=== PATIENT | female | born 1930 | race Caucasian/White ===

== ENCOUNTER 2018-02-08 11:56 | Inpatient (IN) | payer MEDICARE, BC ==
[2018-02-08 12:28] LABS: CHLORIDE,CL 103 mEq/L (98-106); SODIUM,NA 140 mEq/L (136-145)
[2018-02-08] MEDS ORDERED: Sodium Chloride 0.9% 10 ML Syringe FLUSH PRN (14:56)
[2018-02-08] MEDS ORDERED: Acetaminophen 325 MG Tab PO PRN (14:56)
[2018-02-08] MEDS ORDERED: Temazepam 15 MG Cap PO PRN (14:56)
[2018-02-08] MEDS ORDERED: Magnesium Hydroxide 400 MG/5 ML Susp 30 ML Cup PO PRN (14:56)
[2018-02-08] MEDS ORDERED: Phytonadione 10 MG in Sodium Chloride 0.9% 50 ML IV ONE (15:09)
[2018-02-08] MEDS ORDERED: Calcium Carbonate 500 MG Tab.Chew PO PRN (15:10)
[2018-02-08] MEDS ORDERED: Sodium Chloride 0.9% 250 ML IV SCH (15:15)
[2018-02-08] MEDS: Furosemide 20 MG/2 ML VIAL IVPUSH SCH ×2 (16:02→22:17)
[2018-02-08] MEDS ORDERED: Phytonadione ORAL 2.5mg/2.5ml Soln Simple Syrup U/D PO ONE (16:45)
[2018-02-08] MEDS: Latanoprost 0.005% Ophth Soln 2.5 ML Bottle EYEBOTH SCH (19:51)
[2018-02-08] MEDS: prednisoLONE Acetate 1% Ophth Susp 5 ML Bottle EYELF SCH (19:51)
[2018-02-08] MEDS: Carvedilol 3.125 MG Tab PO SCH (19:53)
[2018-02-08] MEDS: cloNIDine 0.1 MG Tab PO SCH (19:54)
[2018-02-08] MEDS: Insulin Detemir 100 Units/ML 3 ML Pen SUBCUT SCH (19:54)
[2018-02-08] MEDS: Magnesium Chloride 64 MG Tab.ER PO SCH (19:57)
[2018-02-09] MEDS: Furosemide 20 MG/2 ML VIAL IVPUSH SCH ×2 (07:35→19:50)
[2018-02-09] MEDS: Ferrous Sulfate 324 MG Tab.EC PO SCH (07:36)
[2018-02-09] MEDS: cloNIDine 0.1 MG Tab PO SCH ×2 (07:36→19:50)
[2018-02-09] MEDS: Carvedilol 3.125 MG Tab PO SCH ×2 (07:36→19:50)
[2018-02-09] MEDS: Aspirin 81 MG Tab.EC PO SCH (07:36)
[2018-02-09] MEDS: Psyllium Husk Powder Sugar Free 5.85 GM Packet PO SCH (07:38)
[2018-02-09] MEDS: Cholecalciferol (Vitamin D3) 1,000 Unit Tab PO SCH (07:38)
[2018-02-09] MEDS: Insulin Detemir 100 Units/ML 3 ML Pen SUBCUT SCH ×2 (07:39→20:53)
[2018-02-09] MEDS: prednisoLONE Acetate 1% Ophth Susp 5 ML Bottle EYELF SCH ×4 (07:40→19:51)
[2018-02-09] MEDS: BRIMONIDINE EYEBOTH SCH ×2 (08:40→08:41)
--- NOTE | 2018-02-09 09:24 | PN ---
DATE: 02/09/2018 HISTORY OF PRESENT ILLNESS: Tala Weathers came in with short of breath, left ventricular systolic congestive heart failure and anemia which she has had before. Hemoglobin was down to 7.7, admitted to the hospital, given 2 units of blood. Started on IV diuresis, says she feels better today. PHYSICAL EXAMINATION: NECK: Supple. LUNGS: Little crepitus at left base. CARDIAC: Sounds were regular with aortic click. EXTREMITIES: She still has +2 bilateral pretibial edema. D-dimer looks okay, so I doubt DVT. ASSESSMENT: 1. LEFT VENTRICULAR SYSTOLIC CONGESTIVE HEART FAILURE. 2. ANEMIA. 3. VALVE PROSTHESIS. 4. HISTORY OF ATRIAL FIBRILLATION. P: Monitor. LLOYD/DORIE /[id number]
[2018-02-09] MEDS: Magnesium Chloride 64 MG Tab.ER PO SCH ×2 (12:12→19:54)
[2018-02-09] MEDS: atorvaSTATin 10 MG Tab PO SCH (12:12)
[2018-02-09] MEDS: Latanoprost 0.005% Ophth Soln 2.5 ML Bottle EYEBOTH SCH (19:51)
[2018-02-10] MEDS ORDERED: Potassium Chloride 10 MEQ Tab.ER PO STA (08:10)
[2018-02-10] MEDS: Cholecalciferol (Vitamin D3) 1,000 Unit Tab PO SCH (08:18)
[2018-02-10] MEDS: Carvedilol 3.125 MG Tab PO SCH ×2 (08:18→19:26)
[2018-02-10] MEDS: Ferrous Sulfate 324 MG Tab.EC PO SCH (08:18)
[2018-02-10] MEDS: cloNIDine 0.1 MG Tab PO SCH ×2 (08:18→19:25)
[2018-02-10] MEDS: Aspirin 81 MG Tab.EC PO SCH (08:18)
[2018-02-10] MEDS: Furosemide 20 MG/2 ML VIAL IVPUSH SCH ×2 (08:19→19:26)
[2018-02-10] MEDS: Insulin Detemir 100 Units/ML 3 ML Pen SUBCUT SCH ×2 (08:19→20:11)
[2018-02-10] MEDS: Psyllium Husk Powder Sugar Free 5.85 GM Packet PO SCH (08:20)
[2018-02-10] MEDS: BRIMONIDINE EYEBOTH SCH ×6 (08:38→19:26)
--- NOTE | 2018-02-10 11:53 | PN ---
DATE: 02/10/2018 S: Tala Weathers is an 87-year-old white female who came in with anemia of chronic disease, [id number] congestive heart failure. Today says she is feeling better. O: NECK: Supple. CHEST: Little decreased breath sounds, right base. CARDIAC: Sounds were regular. She has still got +1 pretibial edema. ASSESSMENT: 1. LEFT VENTRICULAR SYSTOLIC CONGESTIVE HEART FAILURE. 2. ANEMIA OF CHRONIC DISEASE. P: We are going to start some potassium supplemental, start her back on her Coumadin for aortic valve and atrial fibrillation. LLOYD/DORIE /[id number]
[2018-02-10] MEDS: Warfarin 2.5 MG Tab PO SCH (12:12)
[2018-02-10] MEDS: Magnesium Chloride 64 MG Tab.ER PO SCH ×2 (12:12→20:11)
[2018-02-10] MEDS: atorvaSTATin 10 MG Tab PO SCH (12:14)
[2018-02-10] MEDS: Potassium Chloride 10 MEQ Tab.ER PO SCH (17:04)
[2018-02-10] MEDS: Latanoprost 0.005% Ophth Soln 2.5 ML Bottle EYEBOTH SCH (19:26)
[2018-02-11] MEDS: Psyllium Husk Powder Sugar Free 5.85 GM Packet PO SCH (08:17)
[2018-02-11] MEDS: Insulin Detemir 100 Units/ML 3 ML Pen SUBCUT SCH (08:17)
[2018-02-11] MEDS: Furosemide 20 MG/2 ML VIAL IVPUSH SCH (08:18)
[2018-02-11] MEDS: cloNIDine 0.1 MG Tab PO SCH (08:20)
[2018-02-11] MEDS: Ferrous Sulfate 324 MG Tab.EC PO SCH (08:20)
[2018-02-11 08:21] VITALS: BP 137/52
[2018-02-11] MEDS: Aspirin 81 MG Tab.EC PO SCH (08:21)
[2018-02-11] MEDS: Potassium Chloride 10 MEQ Tab.ER PO SCH (08:21)
[2018-02-11] MEDS: Carvedilol 3.125 MG Tab PO SCH (08:21)
[2018-02-11] MEDS: Cholecalciferol (Vitamin D3) 1,000 Unit Tab PO SCH (08:21)
[2018-02-11] MEDS: BRIMONIDINE EYEBOTH SCH (08:22)
--- NOTE | 2018-02-11 09:06 | DISCH ---
HOSPITAL COURSE: Tala Weathers is an elderly white female who came in with short of breath and left ventricular systolic congestive heart failure with a hemoglobin of 7 and she was transfused 2 units, started on diuresis, responded nicely at time of discharge. Peripheral edema is gone. She said she felt great. PHYSICAL EXAMINATION: NECK: Supple. CHEST: Basically clear. LABORATORY DATA: Lab in the hospital, her hemoglobin is 7.7, she came in, 9.7 prior to discharge. INR was adequate. Creatinine was 1.41, down 1.1. Low calcium from total low proteins. Blood sugars were good. Urine was clear. Pro- BNP was 9626. Echo results are pending. DISPOSITION: The patient now discharged home on her home meds and then we will see her back in the clinic on Thursday for appropriate lab work and the possibility of looking to see whether she is GI bleeding or whether it is just [id number] disease or leftover polymyalgia rheumatica. DISCHARGE DIAGNOSIS: 1. ANEMIA, QUESTION ETIOLOGY, POSSIBLE [id number] DISEASE. 2. LEFT VENTRICULAR SYSTOLIC CONGESTIVE HEART FAILURE. 3. CHRONIC RENAL INSUFFICIENCY. 4. DIABETES MELLITUS. 5. HYPERTENSION. 6. HYPERLIPIDEMIA. 7. AORTIC VALVE PROSTHESIS WITH ATRIAL FIBRILLATION. LLOYD/DORIE /[id number]
[2018-02-11] MEDS: Warfarin 2.5 MG Tab PO SCH (11:32)
[2018-02-11] MEDS: Magnesium Chloride 64 MG Tab.ER PO SCH (11:32)
[2018-02-11] MEDS: atorvaSTATin 10 MG Tab PO SCH (11:32)
== END 2018-02-11 12:25 | disposition home or self-care (01) | DRG 292 ==
LOC: CC.MS 11:56 → CC.FCMC 11:56 → UNDOADMIN 13:44 → CC.MS 13:44
PROVIDERS: ADMIT General Practice; ATTEND General Practice
PROC: 30233N1 Transfusion of Nonautologous Red Blood Cells into Peripheral Vein, Percutaneous Approach (ICD-10-PCS; principal; 2018-02-08)
DX: R06.02 Shortness of breath (principal); I13.0 Hypertensive heart and chronic kidney disease with heart failure and stage 1 through stage 4 chronic kidney disease, or unspecified chronic kidney disease; I50.20 Unspecified systolic (congestive) heart failure; D63.1 Anemia in chronic kidney disease; R60.9 Edema, unspecified; E11.22 Type 2 diabetes mellitus with diabetic chronic kidney disease; I48.91 Unspecified atrial fibrillation; Z88.8 Allergy status to other drugs, medicaments and biological substances; Z79.899 Other long term (current) drug therapy; M19.90 Unspecified osteoarthritis, unspecified site; D64.9 Anemia, unspecified; N18.9 Chronic kidney disease, unspecified; E78.5 Hyperlipidemia, unspecified; Z95.2 Presence of prosthetic heart valve
CPT/HCPCS: 36415; 36430; 71046; 80048; 80053; 80162; 81001; 82962; 83735; 83880; 85025; 85379; 85610; 85651; 86850; 86900; 86901; 86920; 86922; 93306; 97110-GP; 97161-GP; A9270-GY; J1815-GY; J1940; J7030; P9016

== ENCOUNTER 2018-02-12 18:00 | Inpatient (IN) | payer MEDICARE, BC ==
--- NOTE | 2018-02-12 19:18 | EDM.PDOC ---
ED HPI GENERAL MEDICAL PROBLEM - General Chief Complaint: Fever Stated Complaint: fever Time Seen by Provider: 02/12/18 18:15 Source of Information: Reports: Patient, Family History Limitations: Reports: No Limitations - History of Present Illness INITIAL COMMENTS - FREE TEXT/NARRATIVE: Patient presents back to ER with complaints of fatigue, fever and arm discomfort. Was discharged home from the hospital yesterday after being admitted for CHF and anemia. Did get 2 units of blood while here and her hemoglobin improved from 7.7 to 9.7 by discharge. She denies any known bleeding. Daughter states she has been anemic in the past but hasn't had any blood transfusions for over 40 years. Daughter relates that she hasn't been out of bed much today, didn't eat dinner or any snacks today. Only had a few bites to eat this am. Daughter states she was running a temp this afternoon, 100.5. Continues to have significant edema in her legs, short of breath. Denies any urinary concerns. Denies pain. Onset: Gradual Duration: Day(s): Location: Reports: Generalized Associated Symptoms: Reports: Loss of Appetite, Weakness. Denies: Chest Pain, Cough, Fever/Chills, Shortness of Breath - Related Data Allergies Allergy/AdvReac Type Severity Reaction Status Date / Time Sulfa (Sulfonamide Allergy Intermediate Rash Verified 02/12/18 18:38 Antibiotics) gentamicin [Gentamicin] Allergy Mild sore eyes Verified 02/12/18 18:38 hydralazine [Hydralazine] Allergy Mild Cannot Verified 02/12/18 18:38 Remember metoprolol Allergy Mild Fluid Verified 02/12/18 18:38 Retention selenium sulfide Allergy Mild Cannot Verified 02/12/18 18:38 Remember amoxicillin trihydrate Allergy Rash Verified 02/12/18 18:38 [From Augmentin] potassium clavulanate Allergy Rash Verified 02/12/18 18:38 [From Augmentin] rosiglitazone maleate Allergy Abdominal Verified 02/12/18 18:38 [From Avandia] Pain Yeast Allergy Abdominal Verified 02/12/18 18:38 Pain Home Meds: Home Meds Aspirin [Halfprin] 81 mg PO DAILY 01/24/14 [History] Brimonidine [Alphagan P 0.1% Ophth Soln] 1 drop EYEBOTH TID 01/24/14 [History] Cholecalciferol (Vitamin D3) [Vitamin D3] 2,000 unit PO DAILY 01/24/14 [History] Ferrous Sulfate 325 mg PO DAILY 01/24/14 [History] Insulin Detemir [Levemir Flexpen] 3 - 4 units SUBCUT BID 01/24/14 [History] Latanoprost 1 drop EYEBOTH BEDTIME 01/24/14 [History] Magnesium Chloride [Magnesium Dr] 2 tab PO 1200,2000 01/24/14 [History] atorvaSTATin [Lipitor] 10 mg PO 1200 01/24/14 [History] cloNIDine [Catapres] 0.5 tab PO BID 01/24/14 [History] Furosemide [Lasix] 40 mg PO BID 10/29/14 [History] Denosumab [Prolia] 60 mg SUBCUT Q180D 01/05/16 [History] Carvedilol 3.125 mg PO BID 12/26/16 [History] ALPRAZolam [Alprazolam] 0.5 mg PO QID PRN 02/08/18 [History] Cefuroxime Axetil [Cefuroxime] 1 tab PO BID PRN 02/08/18 [History] Methylcellulose [Citrucel] 1 tab PO DAILY 02/08/18 [History] prednisoLONE Acetate [Pred Forte 1% Ophth Susp] 1 drop EYELF ASDIRECTED [History] Calcium Carb & Citrate/Vit D3 [Citracal + D ER] 1 each PO DAILY 02/12/18 [ History] Warfarin [Coumadin] 2.5 mg PO SUMOTUTHSA 02/12/18 [History] Warfarin [Coumadin] 5 mg PO WEFR 02/12/18 [History] Past Medical History HEENT History: Reports: Impaired Vision Cardiovascular History: Reports: Afib, Heart Failure, Heart Murmur, Heart Valve Replacement, High Cholesterol, Hypertension, Pacemaker Musculoskeletal History: Reports: Arthritis Endocrine/Metabolic History: Reports: Diabetes, Type II, Osteoporosis Hematologic History: Reports: Anemia - Past Surgical History Cardiovascular Surgical History: Reports: Pacer, Valve Replacement GI Surgical History: Reports: Appendectomy Social & Family History - Family History Family Medical History: Noncontributory - Tobacco Use Smoking Status *Q: Never Smoker Second Hand Smoke Exposure: No - Caffeine Use Caffeine Use: Reports: Coffee - Alcohol Use Days Per Week of Alcohol Use: 0 - Recreational Drug Use Recreational Drug Use: No ED ROS GENERAL - Review of Systems Review Of Systems: See Below Constitutional: Reports: Fever, Chills, Malaise, Weakness, Fatigue, Decreased Appetite HEENT: Denies: Ear Pain, Sinus Problem, Throat Pain Respiratory: Reports: Shortness of Breath. Denies: Cough Cardiovascular: Reports: Edema. Denies: Chest Pain, Lightheadedness Endocrine: Reports: Fatigue GI/Abdominal: Reports: Decreased Appetite. Denies: Abdominal Pain, Nausea, Vomiting : Reports: No Symptoms Musculoskeletal: Reports: No Symptoms Skin: Reports: Erythema (right arm) Neurological: Reports: Weakness ED EXAM, GENERAL - Physical Exam Exam: See Below Exam Limited By: No Limitations General Appearance: Alert, WD/WN, No Apparent Distress Ears: Normal External Exam, Normal TMs Nose: Normal Inspection, Normal Mucosa, No Blood Throat/Mouth: Normal Inspection, Normal Oropharynx Head: Normocephalic Neck: Normal Inspection, Supple, Non-Tender Respiratory/Chest: No Respiratory Distress, Decreased Breath Sounds Cardiovascular: Regular Rate, Rhythm GI/Abdominal: Normal Bowel Sounds, Soft, Non-Tender Extremities: Pedal Edema (3+ pitting bilaterally) Neurological: Alert, Oriented Skin Exam: Warm, Dry, Erythema (right forearm is very red, warm, tender to the touch) Course - Vital Signs Last Recorded V/S: Last Vital Signs Temp 98.9 F 02/12/18 18:03 Pulse 103 H 02/12/18 18:03 Resp 16 02/12/18 18:03 BP 129/56 L 02/12/18 18:03 Pulse Ox 93 L 02/12/18 18:03 - Orders/Labs/Meds Orders: Active Orders 24 hr Category Date Time Status CULTURE BLOOD [BC] Stat Lab 02/12/18 18:35 Received CULTURE BLOOD [BC] Stat Lab 02/12/18 18:45 Received UA W/MICROSCOPIC [URIN] Urgent Lab 02/12/18 18:22 Ordered Labs: Laboratory Tests 02/12/18 02/12/18 02/12/18 Range/Units 18:19 18:45 18:45 WBC 18.0 H (5.0-10.0) 10^3/uL RBC 3.07 L (4.00-5.50) 10^6/uL Hgb 10.5 L (12.0-16.0) g/dL Hct 32.7 L (37.0-47.0) % MCV 106.5 H (82.0-94.0) fL MCH 34.2 H (27.0-32.0) pg MCHC 32.1 L (33.0-38.0) g/dL RDW Coeff of Amie 21.4 H (11.0-15.0) % Plt Count 103 L (150-400) 10^3/uL Neut % (Auto) 93.1 H (35-85) % Lymph % (Auto) 3.1 L (10-55) % [place] % (Auto) 3.7 (0-16) % Eos % (Auto) 0 (0-5) % Baso % (Auto) 0.1 (0-3) % Neut # (Auto) 16.75 H (1.80-7.00) 10^3/uL Lymph # (Auto) 0.56 L (1.00-4.80) 10^3/uL [place] # (Auto) 0.67 (0.00-0.80) 10^3/uL Eos # (Auto) 0.00 (0.00-0.45) 10^3/uL Baso # (Auto) 0.02 10^3/uL PT 16.8 H (9.7-12.3) SEC INR 1.68 H (0.92-1.18) Sodium 140 (136-145) mEq/L Potassium 4.1 (3.5-5.0) mEq/L Chloride 104 (98-106) mEq/L Carbon Dioxide 24 (21-32) mmol/L BUN 35 H (7-18) mg/dL Creatinine 1.2 H (0.6-1.0) mg/dL Est Cr Clr Drug Dosing 24.45 mL/min Estimated GFR (MDRD) 42 L (>=60) mL/min Glucose 86 (75-99) mg/dL Calcium 8.0 L (8.4-10.1) mg/dL Total Bilirubin 2.9 H (0.0-1.0) mg/dL AST 58 H (15-37) U/L ALT 29 (12-78) U/L Alkaline Phosphatase 71 (46-116) U/L C-Reactive Protein 10.0 H (0.2-0.8) mg/dL NT-Pro-B Natriuret Pep 86010 H (0-1000) pg/mL Total Protein 7.0 (6.4-8.2) g/dL Albumin 3.0 L (3.4-5.0) g/dL - Re-Assessments/Exams Free Text/Narrative Re-Assessment/Exam: 02/12/18 19:29 Labs all reviewed. WBC up significantly from yesterday to 18. CRP 10. ProBNP has doubled from prior admission. Hemoglobin is stable Departure - Departure Time of Disposition: 19:30 Disposition: Admitted As Inpatient 65 Condition: Fair Clinical Impression: Cellulitis of right arm Congestive heart failure Qualifiers: Heart failure type: systolic Heart failure chronicity: acute on chronic Qualified Code(s): I50.23 - Acute on chronic systolic (congestive) heart failure - Discharge Information Forms: ED Department Discharge - Problem List & Annotations (1) Cellulitis of right arm SNOMED Code(s): 220114248 Code(s): L03.113 - CELLULITIS OF RIGHT UPPER LIMB Status: Acute Priority : High Current Visit: Yes (2) Congestive heart failure SNOMED Code(s): 82363679 Code(s): I50.9 - HEART FAILURE, UNSPECIFIED Status: Acute Priority: High Current Visit: Yes Qualifiers: Heart failure type: systolic Heart failure chronicity: acute on chronic Qualified Code(s): I50.23 - Acute on chronic systolic (congestive) heart failure - Problem List Review Problem List Initiated/Reviewed/Updated: Yes - My Orders Last 24 Hours: My Active Orders 02/12/18 18:22 UA W/MICROSCOPIC [URIN] Urgent 02/12/18 18:35 CULTURE BLOOD [BC] Stat 02/12/18 18:45 CULTURE BLOOD [BC] Stat - Assessment/Plan Admission H&P: Please use this note as an admission H&P Last 24 Hours: My Active Orders 02/12/18 18:22 UA W/MICROSCOPIC [URIN] Urgent 02/12/18 18:35 CULTURE BLOOD [BC] Stat 02/12/18 18:45 CULTURE BLOOD [BC] Stat Assessment:: 1. Cellulitis of right arm 2. Acute on chronic CHF Plan: Admit inpatient to DR. Spain. IV antibiotics. Lasix IV. Monitor I & O. Physical therapy.
[2018-02-12] MEDS ORDERED: Sodium Chloride 0.9% 10 ML Syringe FLUSH PRN (19:54)
[2018-02-12] MEDS ORDERED: Ondansetron 4 MG Tab.DIS PO PRN (19:54)
[2018-02-12] MEDS ORDERED: prednisoLONE Acetate 1% Ophth Susp 5 ML Bottle EYELF SCH (19:54)
[2018-02-12] MEDS ORDERED: ALPRAZolam 0.25 MG Tab PO PRN (19:54)
[2018-02-12] MEDS ORDERED: cefTRIAXone 1 GM Vial IVPUSH SCH (20:00)
[2018-02-12] MEDS ORDERED: Pantoprazole 40 MG Vial IVPUSH SCH (20:00)
[2018-02-12] MEDS ORDERED: Latanoprost 0.005% Ophth Soln 2.5 ML Bottle EYEBOTH SCH (20:00)
[2018-02-12] MEDS ORDERED: Insulin Detemir 100 Units/ML 3 ML Pen SUBCUT SCH (20:00)
[2018-02-12] MEDS ORDERED: cloNIDine 0.1 MG Tab PO SCH (20:00)
[2018-02-12] MEDS ORDERED: Carvedilol 3.125 MG Tab PO SCH (20:00)
[2018-02-12] MEDS ORDERED: Magnesium Chloride 64 MG Tab.ER PO SCH (20:00)
[2018-02-12] MEDS ORDERED: BRIMONIDINE EYEBOTH SCH (20:00)
[2018-02-12] MEDS ORDERED: ALPRAZolam 0.5 MG Tab.DIS (ODT) PO PRN (20:15)
[2018-02-12] MEDS ORDERED: Furosemide 40 MG/4 ML VIAL IVPUSH SCH (20:30)
[2018-02-12] MEDS: Acetaminophen 325 MG Tab PO PRN (20:38)
[2018-02-12] MEDS ORDERED: Ibuprofen 200 MG Tab PO ONE (23:09)
[2018-02-13] MEDS ORDERED: Sodium Chloride 0.45% 1,000 ML IV SCH (01:15)
[2018-02-13] MEDS ORDERED: Sodium Chloride 0.45% 1,000 ML ONE (01:17)
--- NOTE | 2018-02-13 01:17 | PCM.SN ---
- Free Text/Narrative Note: 0115- Called to assess palliative care patient. Status has declined. Has been febrile, blood pressure low now yet right lung field is noted to have crackles. She is more lethargic. Daughter aware. Will start low IV fluids, get chest xray, consider more IV Lasix as she has not had good urine output since IV Lasix given earlier. 0145- Chest xray completed. Shows cardiomegaly with venous congestion, pleural effusion right base. EKG wide complex rhythm with frequent PVCs. Blood pressure has dropped, last one 77/41. Oxygen on at 2 liters as sats had dropped to 87%. Contacted hospitalist at [facility] with current status, vitals and treatment. Did question transfer as would need ICU care for pressors and IV albumin as Lasix not working. Does feel could push more IV Lasix. Contacted daughter. Does not want to transfer patient, treatment here but keep comfortable. 0500- Family all present at bedside. Has not had any urine output since second dose of IV Lasix given. Family would like to switch patient to comfort cares only as she is not responding well to treatment. She does open her eyes at times, breathing less labored than at 2. Will use morphine as needed, keep oxygen on. Stop IV fluids and other meds.
[2018-02-13] MEDS ORDERED: Furosemide 40 MG/4 ML VIAL IVPUSH ONE (02:02)
[2018-02-13] MEDS ORDERED: Morphine 2 MG/ML Syringe IVPUSH PRN (05:43)
[2018-02-13] MEDS ORDERED: Calcium Carbonate/Vitamin D3 1250 MG-200 Unit Tab PO SCH (08:00)
[2018-02-13] MEDS ORDERED: Ferrous Sulfate 324 MG Tab.EC PO SCH (08:00)
[2018-02-13] MEDS ORDERED: Cholecalciferol (Vitamin D3) 1,000 Unit Tab PO SCH (08:00)
[2018-02-13] MEDS ORDERED: Aspirin 81 MG Tab.EC PO SCH (08:00)
[2018-02-13] MEDS ORDERED: cefTRIAXone 1 GM Vial IVPUSH SCH (10:45)
[2018-02-13] MEDS ORDERED: atorvaSTATin 10 MG Tab PO SCH (12:00)
[2018-02-13] MEDS ORDERED: Warfarin 2.5 MG Tab PO SCH (12:00)
--- NOTE | 2018-02-13 17:51 | PCM.PN ---
- General Info Date of Service: 02/13/18 Admission Dx/Problem (Free Text): Cellulitis Fever Sepsis Acute on chronic CHF Functional Status: Reports: Pain Controlled. Denies: Tolerating Diet, Ambulating - Review of Systems General: Reports: Fever, Weakness, Fatigue, Malaise HEENT: Reports: No Symptoms Pulmonary: Reports: Shortness of Breath, Cough. Denies: Sputum Cardiovascular: Reports: Edema (3+ pitting edema). Denies: Chest Pain Gastrointestinal: Denies: Abdominal Pain, Nausea, Vomiting Genitourinary: Reports: Other (minimal urine output) Musculoskeletal: Reports: No Symptoms Skin: Reports: Pallor - Patient Data Vitals - Most Recent: Last Vital Signs Temp 97 F 02/13/18 08:00 Pulse 78 02/13/18 08:00 Resp 14 02/13/18 08:00 BP 77/36 L 02/13/18 08:00 Pulse Ox 97 02/13/18 08:00 Weight - Most Recent: 122 lb 9.6 oz I&O - Last 24 Hours: Intake & Output 02/13/18 02/13/18 02/13/18 06:59 14:59 22:59 Output Total 125 Balance -125 Lab Results Last 24 Hours: Laboratory Results - last 24 hr 02/12/18 Range/Units 20:31 POC Glucose 131 H (75-105) mg/dl Med Orders - Current: Current Medications Acetaminophen (Tylenol) 650 mg PO Q4H PRN PRN Reason: Pain (Mild 1-3)/fever Last Admin: 02/12/18 20:38 Dose: 650 mg Alprazolam (Alprazolam Odt) 0.5 mg PO QID PRN PRN Reason: Anxiety Ceftriaxone Sodium (Rocephin) 1 gm IVPUSH Q24H EVELYN Morphine Sulfate (Morphine) 1 - 2 mg IVPUSH Q1H PRN PRN Reason: Pain Sodium Chloride (Saline Flush) 10 ml FLUSH ASDIRECTED PRN PRN Reason: Keep Vein Open Discontinued Medications Alprazolam (Xanax) 0.5 mg PO QID PRN PRN Reason: Anxiety Aspirin (Halfprin) 81 mg PO DAILY EVELYN Atorvastatin Calcium (Lipitor) 10 mg PO DAILY@1200 [facility] Calcium Carbonate (Calcium Carbonate/Vitamin D 1250 Mg-200 Unit) 1 tab PO DAILY EVELYN Carvedilol (Coreg) 3.125 mg PO BID [facility] Last Admin: 02/12/18 20:41 Dose: 3.125 mg Ceftriaxone Sodium (Rocephin) 1 gm IVPUSH Q24H [facility] Last Admin: 02/12/18 20:38 Dose: 1 gm Ceftriaxone Sodium (Rocephin) 1 gm IVPUSH Q24H [facility] Last Admin: 02/13/18 11:41 Dose: Not Given Cholecalciferol (Vitamin D3) 2,000 units PO DAILY [facility] Clonidine HCl (Catapres) 0.05 mg PO BID [facility] Last Admin: 02/12/18 20:41 Dose: 0.05 mg Ferrous Sulfate (Ferrous Sulfate) 324 mg PO DAILY [facility] Furosemide (Lasix) 40 mg IVPUSH DAILY [facility] Last Admin: 02/12/18 20:52 Dose: 40 mg Furosemide (Lasix) 40 mg IVPUSH ONETIME ONE Stop: 02/13/18 02:03 Last Admin: 02/13/18 02:49 Dose: 40 mg Sodium Chloride (Sodium Chloride 0.45%) Confirm Administered Dose 1,000 mls @ as directed .ROUTE .STK-MED ONE Stop: 02/13/18 01:18 Last Admin: 02/13/18 01:33 Dose: Not Given Sodium Chloride (Sodium Chloride 0.45%) 1,000 mls @ 50 mls/hr IV ASDIRECTED [facility] Last Admin: 02/13/18 01:33 Dose: 50 mls/hr Ibuprofen (Motrin) 400 mg PO ONETIME ONE Stop: 02/12/18 23:10 Last Admin: 02/12/18 23:11 Dose: 400 mg Insulin Detemir (Levemir) 3 - 4 unit SUBCUT BID [facility] Last Admin: 02/12/18 20:43 Dose: 3 unit Latanoprost (Xalatan 0.005% Ophth Soln) 0 ml EYEBOTH BEDTIME [facility] Last Admin: 02/12/18 20:43 Dose: 1 drop Magnesium Chloride (Mag-64) 128 mg PO BID@1200,2000 [facility] Last Admin: 02/12/18 20:38 Dose: 128 mg Non-Formulary Medication (Brimonidine [Alphagan P 0.1% Ophth Soln]) 1 drop EYEBOTH TID [facility] Last Admin: 02/13/18 06:20 Dose: Not Given Ondansetron HCl (Zofran Odt) 4 mg PO Q4H PRN PRN Reason: nausea, able to take PO Pantoprazole Sodium (Protonix Iv) 40 mg IVPUSH Q24H [facility] Last Admin: 02/12/18 20:38 Dose: 40 mg Prednisolone Acetate (Pred Forte 1% Ophth Susp) ml EYELF ASDIRECTED [facility] Warfarin Sodium (Coumadin) 2.5 mg PO SuMoTuThSa@1200 [facility] Warfarin Sodium (Coumadin) 5 mg PO WeFr@1200 [facility] - Exam Quality Assessment: Supplemental Oxygen General: Alert, Oriented (person only) HEENT: Mucous Membr. Moist/[place] Neck: Supple Lungs: Decreased Breath Sounds, Crackles Cardiovascular: Tachycardia GI/Abdominal Exam: Normal Bowel Sounds, Soft, Non-Tender Extremities: Pedal Edema (3+ pitting edema) Wound/Incisions: Erythema Improving (right arm erythema is improving, cubing machine tender and warm) Psy/Mental Status: Alert - Problem List & Annotations (1) Cellulitis of right arm SNOMED Code(s): 055065864 Code(s): L03.113 - CELLULITIS OF RIGHT UPPER LIMB Status: Acute Priority : High Current Visit: Yes (2) Congestive heart failure SNOMED Code(s): 21034418 Code(s): I50.9 - HEART FAILURE, UNSPECIFIED Status: Acute Priority: High Current Visit: Yes Qualifiers: Heart failure type: systolic Heart failure chronicity: acute on chronic Qualified Code(s): I50.23 - Acute on chronic systolic (congestive) heart failure (3) Palliative care patient SNOMED Code(s): 746113679 Code(s): Z51.5 - ENCOUNTER FOR PALLIATIVE CARE Status: Acute Priority: High Current Visit: Yes - Problem List Review Problem List Initiated/Reviewed/Updated: Yes - My Orders Last 24 Hours: My Active Orders 02/12/18 19:34 Resuscitation Status Routine 02/12/18 19:54 Patient Status [ADT] Routine Oxygen Therapy [RC] .PRN Vital Signs [RC] PRN Acetaminophen [Tylenol] 650 mg PO Q4H PRN Sodium Chloride 0.9% [Saline Flush] 10 ml FLUSH ASDIRECTED PRN Saline Lock Insert [OM.PC] Routine 02/12/18 20:15 ALPRAZolam [Alprazolam ODT] 0.5 mg PO QID PRN 02/12/18 22:00 Sullivan Catheter Insertion [Insert Urinary Catheter] [OM.PC] Q24H 02/13/18 01:20 Chest 1V Frontal [CR] Routine 02/13/18 01:53 Urinary Catheter Assessment [RC] 02/13/18 05:43 Morphine 1 - 2 mg IVPUSH Q1H PRN 02/13/18 20:00 cefTRIAXone [Rocephin] 1 gm IVPUSH Q24H - Assessment Assessment:: Comfort Care Patient Acute on chronic CHF Cellulitis on right arm UTI Sepsis - Plan Plan:: Patient is more alert again this am, answering questions to family with one syllable answers. She still tires very easily. Denies any concern with her breathing this am, significant change from 3 hours ago. Taking sips of water. Lung sounds wet/crackles noted now in both bases. She still has 3+ pitting edema to lower extremities. We had switched to a code level 3 at 530 this am. Long discussion again held with family about this now that she is alert. Still not showing urinary output, still has low blood pressure. Family would like to proceed with antibiotics but no further labs/meds or blood glucose checks yet at this time. Will continue to follow throughout day and change as needed per family request. Dr. [place] aware. No other antibiotics added yet or IV Lasix but will follow status.
[2018-02-13] MEDS: cefTRIAXone 1 GM Vial IVPUSH SCH (20:09)
[2018-02-13] MEDS: Acetaminophen 325 MG Tab PO PRN (20:12)
[2018-02-14] MEDS ORDERED: ALPRAZolam 0.5 MG Tab.DIS (ODT) PO PRN (11:27)
[2018-02-14] MEDS ORDERED: Phytonadione 1 MG in Sodium Chloride 0.9% 50 ML IV ONE (11:34)
[2018-02-14] MEDS: Furosemide 40 MG/4 ML VIAL IVPUSH SCH ×2 (12:04→19:57)
[2018-02-14] MEDS ORDERED: Sodium Chloride 0.45% 1,000 ML IV SCH (12:30)
--- NOTE | 2018-02-14 13:10 | PCM.PN ---
- General Info Date of Service: 02/14/18 Admission Dx/Problem (Free Text): Cellulitis Fever Sepsis Acute on chronic systolic CHF Functional Status: Reports: Pain Controlled, Tolerating Diet, Ambulating - Review of Systems General: Reports: Weakness, Fatigue. Denies: Fever HEENT: Reports: No Symptoms Pulmonary: Reports: Shortness of Breath. Denies: Cough Cardiovascular: Reports: Edema. Denies: Chest Pain, Lightheadedness Gastrointestinal: Reports: Decreased Appetite. Denies: Abdominal Pain, Nausea, Vomiting Genitourinary: Reports: Other (catheter patent) Musculoskeletal: Reports: Arm Pain Skin: Reports: Other (redness and swelling ) Neurological: Reports: No Symptoms Psychiatric: Reports: No Symptoms - Patient Data Vitals - Most Recent: Last Vital Signs Temp 98.5 F 02/14/18 11:41 Pulse 108 H 02/14/18 11:41 Resp 20 02/14/18 11:41 BP 106/62 02/14/18 11:41 Pulse Ox 99 02/14/18 11:41 Weight - Most Recent: 122 lb 9.6 oz I&O - Last 24 Hours: Intake & Output 02/13/18 02/14/18 02/14/18 22:59 06:59 14:59 Output Total 175 100 Balance -175 -100 Lab Results Last 24 Hours: Laboratory Results - last 24 hr 02/14/18 02/14/18 02/14/18 Range/Units 11:17 11:17 11:18 WBC 20.5 H* (5.0-10.0) 10^3/uL RBC 3.04 L (4.00-5.50) 10^6/uL Hgb 10.5 L (12.0-16.0) g/dL Hct 32.4 L (37.0-47.0) % MCV 106.6 H (82.0-94.0) fL MCH 34.5 H (27.0-32.0) pg MCHC 32.4 L (33.0-38.0) g/dL RDW Coeff of Amie 19.9 H (11.0-15.0) % Plt Count 82 L (150-400) 10^3/uL Add Manual Diff Yes Neutrophils % (Manual) 84 (35-85) % Band Neutrophils % 12 H (0-5) % Lymphocytes % (Manual) 2 L (21-55) % Monocytes % (Manual) 2 (2-12) % Absolute Neutrophils 19.68 H (1.80-7.00) 10^3/uL Lymphocytes # (Manual) 0.41 L (1.00-4.80) 10^3/uL Monocytes # (Manual) 0.41 (0.00-0.80) 10^3/uL PT 39.1 H (9.7-12.3) SEC INR 4.18 H* (0.92-1.18) Sodium 134 L (136-145) mEq/L Potassium 5.0 D (3.5-5.0) mEq/L Chloride 101 (98-106) mEq/L Carbon Dioxide 20 L (21-32) mmol/L BUN 66 H D (7-18) mg/dL Creatinine 2.3 H D (0.6-1.0) mg/dL Est Cr Clr Drug Dosing 12.76 mL/min Estimated GFR (MDRD) 20 L (>=60) mL/min Glucose 267 H D (75-99) mg/dL Calcium 7.2 L (8.4-10.1) mg/dL C-Reactive Protein 24.2 H (0.2-0.8) mg/dL NT-Pro-B Natriuret Pep 11962 H (0-1000) pg/mL Med Orders - Current: Current Medications Acetaminophen (Tylenol) 650 mg PO Q4H PRN PRN Reason: Pain (Mild 1-3)/fever Last Admin: 02/13/18 20:12 Dose: 650 mg Alprazolam (Alprazolam Odt) 0.5 mg PO QID PRN PRN Reason: Anxiety Aspirin (Aspirin) 81 mg PO WITHBREAKFAST [facility] Brimonidine Tartrate (Alphagan 0.2% Ophth Soln) 0 ml EYEBOTH TID [facility] Carvedilol (Coreg) 3.125 mg PO BIDM [facility] Ceftriaxone Sodium (Rocephin) 1 gm IVPUSH Q24H [facility] Last Admin: 02/13/18 20:09 Dose: 1 gm Furosemide (Lasix) 40 mg IVPUSH BID [facility] Last Admin: 02/14/18 12:04 Dose: 40 mg Vancomycin HCl 1 gm/ Sodium (Chloride) 250 mls @ 167 mls/hr IV ONETIME ONE Stop: 02/14/18 13:29 Last Admin: 02/14/18 12:18 Dose: 167 mls/hr Sodium Chloride (Sodium Chloride 0.45%) 1,000 mls @ 75 mls/hr IV ASDIRECTED [facility] Sodium Chloride (Sodium Chloride 0.45%) 1,000 mls @ 250 mls/hr IV ASDIRECTED [facility] Insulin Detemir (Levemir) 3 - 4 unit SUBCUT BID [facility] Latanoprost (Xalatan 0.005% Ophth Soln) 0 ml EYEBOTH BEDTIME [facility] Morphine Sulfate (Morphine) 1 - 2 mg IVPUSH Q1H PRN PRN Reason: Pain Prednisolone Acetate (Pred Forte 1% Ophth Susp) 0 ml EYELF TID [facility] Sodium Chloride (Saline Flush) 10 ml FLUSH ASDIRECTED PRN PRN Reason: Keep Vein Open Vancomycin HCl (Pharmacy To Dose - Vancomycin) 1 dose .XX ASDIRECTED [facility] Discontinued Medications Alprazolam (Xanax) 0.5 mg PO QID PRN PRN Reason: Anxiety Alprazolam (Alprazolam Odt) 0.5 mg PO QID PRN PRN Reason: Anxiety Aspirin (Halfprin) 81 mg PO DAILY [facility] Atorvastatin Calcium (Lipitor) 10 mg PO DAILY@1200 [facility] Calcium Carbonate (Calcium Carbonate/Vitamin D 1250 Mg-200 Unit) 1 tab PO DAILY [facility] Carvedilol (Coreg) 3.125 mg PO BID [facility] Last Admin: 02/12/18 20:41 Dose: 3.125 mg Ceftriaxone Sodium (Rocephin) 1 gm IVPUSH Q24H [facility] Last Admin: 02/12/18 20:38 Dose: 1 gm Ceftriaxone Sodium (Rocephin) 1 gm IVPUSH Q24H [facility] Last Admin: 02/13/18 11:41 Dose: Not Given Cholecalciferol (Vitamin D3) 2,000 units PO DAILY [facility] Clonidine HCl (Catapres) 0.05 mg PO BID [facility] Last Admin: 02/12/18 20:41 Dose: 0.05 mg Ferrous Sulfate (Ferrous Sulfate) 324 mg PO DAILY [facility] Furosemide (Lasix) 40 mg IVPUSH DAILY [facility] Last Admin: 02/12/18 20:52 Dose: 40 mg Furosemide (Lasix) 40 mg IVPUSH ONETIME ONE Stop: 02/13/18 02:03 Last Admin: 02/13/18 02:49 Dose: 40 mg Sodium Chloride (Sodium Chloride 0.45%) Confirm Administered Dose 1,000 mls @ as directed .ROUTE .STK-MED ONE Stop: 02/13/18 01:18 Last Admin: 02/13/18 01:33 Dose: Not Given Sodium Chloride (Sodium Chloride 0.45%) 1,000 mls @ 50 mls/hr IV ASDIRECTED [facility] Last Admin: 02/13/18 01:33 Dose: 50 mls/hr Phytonadione 1 mg/ Sodium (Chloride) 50.1 mls @ 100 mls/hr IV NOW ONE Stop: 02/14/18 12:04 Last Admin: 02/14/18 12:24 Dose: Not Given Vancomycin HCl 1 gm/ Sodium (Chloride) 250 mls @ 167 mls/hr IV Q24H [facility] Ibuprofen (Motrin) 400 mg PO ONETIME ONE Stop: 02/12/18 23:10 Last Admin: 02/12/18 23:11 Dose: 400 mg Insulin Detemir (Levemir) 3 - 4 unit SUBCUT BID [facility] Last Admin: 02/12/18 20:43 Dose: 3 unit Latanoprost (Xalatan 0.005% Ophth Soln) 0 ml EYEBOTH BEDTIME [facility] Last Admin: 02/12/18 20:43 Dose: 1 drop Magnesium Chloride (Mag-64) 128 mg PO BID@1200,2000 [facility] Last Admin: 02/12/18 20:38 Dose: 128 mg Non-Formulary Medication (Brimonidine [Alphagan P 0.1% Ophth Soln]) 1 drop EYEBOTH TID [facility] Last Admin: 02/13/18 06:20 Dose: Not Given Ondansetron HCl (Zofran Odt) 4 mg PO Q4H PRN PRN Reason: nausea, able to take PO Pantoprazole Sodium (Protonix Iv) 40 mg IVPUSH Q24H [facility] Last Admin: 02/12/18 20:38 Dose: 40 mg Phytonadione (Aquamephyton) Confirm Administered Dose 10 mg .ROUTE .STK-MED ONE Stop: 02/14/18 11:46 Last Admin: 02/14/18 12:24 Dose: Not Given Phytonadione (Aquamephyton) 1 mg SUBCUT ONETIME ONE Stop: 02/14/18 12:08 Last Admin: 02/14/18 12:17 Dose: 1 mg Prednisolone Acetate (Pred Forte 1% Ophth Susp) ml EYELF ASDIRECTED [facility] Prednisolone Acetate (Pred Forte 1% Ophth Susp) 0 ml EYELF DAILY [facility] Warfarin Sodium (Coumadin) 2.5 mg PO SuMoTuThSa@1200 [facility] Warfarin Sodium (Coumadin) 5 mg PO WeFr@1200 [facility] - Exam Quality Assessment: Supplemental Oxygen General: Alert, Oriented (person; conversing more towards her norm today) HEENT: Mucous Membr. Moist/[place] Neck: Supple Lungs: Decreased Breath Sounds, Crackles Cardiovascular: Regular Rate, Regular Rhythm GI/Abdominal Exam: Normal Bowel Sounds, Soft, Non-Tender Extremities: Arm Pain (patient continues to have redness to the right arm, fiberglass bonding machine tender but has improved since admission), Increased Warmth Skin: Warm, Dry Neurological: No New Focal Deficit - Problem List & Annotations (1) Cellulitis of right arm SNOMED Code(s): 423273122 Code(s): L03.113 - CELLULITIS OF RIGHT UPPER LIMB Status: Acute Priority : High Current Visit: Yes (2) Congestive heart failure SNOMED Code(s): 96188126 Code(s): I50.9 - HEART FAILURE, UNSPECIFIED Status: Acute Priority: High Current Visit: Yes Qualifiers: Heart failure type: systolic Heart failure chronicity: acute on chronic Qualified Code(s): I50.23 - Acute on chronic systolic (congestive) heart failure (3) Palliative care patient SNOMED Code(s): 051976382 Code(s): Z51.5 - ENCOUNTER FOR PALLIATIVE CARE Status: Acute Priority: High Current Visit: Yes - Problem List Review Problem List Initiated/Reviewed/Updated: Yes - My Orders Last 24 Hours: My Active Orders 02/13/18 20:00 cefTRIAXone [Rocephin] 1 gm IVPUSH Q24H 02/14/18 11:30 Furosemide [Lasix] 40 mg IVPUSH BID Vancomycin Pharmacy to Dose [Pharmacy to Dose - Vancomycin] 1 dose .XX ASDIRECTED 02/14/18 12:00 Vancomycin 1 gm Sodium Chloride 0.9% [Normal Saline] 250 ml IV ONETIME 02/14/18 12:15 Sodium Chloride 0.45% 1,000 ml IV ASDIRECTED 02/14/18 12:30 Carvedilol [Coreg] 3.125 mg PO BIDM Sodium Chloride 0.45% 1,000 ml IV ASDIRECTED 02/14/18 14:00 Brimonidine [Alphagan 0.2% Ophth Soln] See Dose Instructions EYEBOTH TID prednisoLONE Acetate [Pred Forte 1% Ophth Susp] See Dose Instructions EYELF TID 02/14/18 20:00 Insulin Detemir [Levemir] 3 - 4 unit SUBCUT BID Latanoprost [Xalatan 0.005% Ophth Soln] See Dose Instructions EYEBOTH BEDTIME 02/15/18 08:00 Aspirin 81 mg PO WITHBREAKFAST - Assessment Assessment:: Comfort Care Patient Acute on chronic CHF Cellulitis on right arm UTI Sepsis - Plan Plan:: Patient is more alert again this am, answering questions to family with one syllable answers. She still tires very easily. Denies any concern with her breathing this am, significant change from 3 hours ago. Taking sips of water. Lung sounds wet/crackles noted now in both bases. She still has 3+ pitting edema to lower extremities. We had switched to a code level 3 at 530 this am. Long discussion again held with family about this now that she is alert. Still not showing urinary output, still has low blood pressure. Family would like to proceed with antibiotics but no further labs/meds or blood glucose checks yet at this time. Will continue to follow throughout day and change as needed per family request. Dr. [place] aware. No other antibiotics added yet or IV Lasix but will follow status. 02-14-2018 Patient is alert today, ambulated to the bathroom. Eating small amounts, drinking only sips of water. She does continue to be fatigued but is conversing with family, overall status much improved. Family discussion held, would like to switch her back to code 2 and proceed with more treatment options since she has improved. [place] [address], creatinine and BUN up most likely due to dehydration. WBC is increased. Blood cultures showing gram positive cocci, most likely a staph aureus. INR is high at 4.19. We will add some of her oral meds as blood pressure is improved, able to restart her Coreg as well. Give her a fluid bolus but start her IV Lasix BID and watch output closely. Add Vancomycin for the sepsis. Vitamiin K 1 mg given. Family aware of all labs and changes and that status of patient still serious but decline transfer yet at this point as well. Recheck labs in am.
[2018-02-14] MEDS: prednisoLONE Acetate 1% Ophth Susp 5 ML Bottle EYELF SCH (13:48)
[2018-02-14] MEDS: Carvedilol 3.125 MG Tab PO SCH ×2 (13:48→17:45)
[2018-02-14] MEDS: Brimonidine 0.2% Ophth Soln 5 ML Bottle EYEBOTH SCH ×2 (13:53→19:59)
[2018-02-14] MEDS: Sodium Chloride 0.45% 1,000 ML IV SCH (18:33)
[2018-02-14] MEDS: cefTRIAXone 1 GM Vial IVPUSH SCH (19:57)
[2018-02-14] MEDS: Latanoprost 0.005% Ophth Soln 2.5 ML Bottle EYEBOTH SCH (19:58)
[2018-02-14] MEDS: Insulin Detemir 100 Units/ML 3 ML Pen SUBCUT SCH (20:22)
[2018-02-14] MEDS: Acetaminophen 325 MG Tab PO PRN (23:33)
[2018-02-15] MEDS: Furosemide 40 MG/4 ML VIAL IVPUSH SCH ×2 (07:56→19:40)
[2018-02-15] MEDS: Aspirin 81 MG Tab.Chew PO SCH (07:56)
[2018-02-15] MEDS: Sodium Chloride 0.45% 1,000 ML IV SCH ×2 (07:56→21:35)
[2018-02-15] MEDS: Carvedilol 3.125 MG Tab PO SCH ×2 (07:56→17:37)
[2018-02-15] MEDS: Insulin Detemir 100 Units/ML 3 ML Pen SUBCUT SCH ×2 (07:59→20:25)
[2018-02-15] MEDS ORDERED: prednisoLONE Acetate 1% Ophth Susp 5 ML Bottle EYELF SCH (08:00)
[2018-02-15] MEDS: Brimonidine 0.2% Ophth Soln 5 ML Bottle EYEBOTH SCH ×3 (08:00→19:39)
[2018-02-15] MEDS: prednisoLONE Acetate 1% Ophth Susp 5 ML Bottle EYELF SCH (09:11)
--- NOTE | 2018-02-15 09:17 | PN ---
DATE: 02/15/2018 S: Tala Weathers came in with cellulitis of her right upper extremity with left ventricular systolic congestive heart failure which she has had before. O: NECK: Supple. CHEST: Little crepitus, right base. CARDIAC: Sounds were irregularly irregular, trace pretibial edema. ABDOMEN: Soft. EXTREMITIES: Right lower extremity cellulitis extending from wrist up to elbow, erythema, edema, tenderness. LABORATORY DATA: Her white counts are dropping. C-reactive protein is up. Preliminary blood culture showed gram-positive cocci, 40-hour growth, no growth, so was contamination. ASSESSMENT: 1. CELLULITIS, RIGHT UPPER AND LOWER EXTREMITY. 2. LEFT VENTRICULAR SYSTOLIC CONGESTIVE HEART FAILURE. 3. ATRIAL FIBRILLATION. 4. ACUTE AND CHRONIC RENAL INSUFFICIENCY. 5. HYPOCALCEMIA WHICH WE WILL TRY AND CORRECT. MIMI /[id number]
[2018-02-15] MEDS ORDERED: Calcium Gluconate 1 GM in Sodium Chloride 0.9% 100 ML IV ONE (09:44)
[2018-02-15] MEDS ORDERED: ALPRAZolam 0.25 MG Tab PO PRN (15:32)
[2018-02-15] MEDS: cefTRIAXone 1 GM Vial IVPUSH SCH (19:44)
[2018-02-15] MEDS: Latanoprost 0.005% Ophth Soln 2.5 ML Bottle EYEBOTH SCH (19:45)
[2018-02-15 19:53] VITALS: BP 121/53
[2018-02-16] MEDS: Brimonidine 0.2% Ophth Soln 5 ML Bottle EYEBOTH SCH (09:45)
[2018-02-16] MEDS: Carvedilol 3.125 MG Tab PO SCH (09:46)
[2018-02-16] MEDS: Furosemide 40 MG/4 ML VIAL IVPUSH SCH (09:46)
[2018-02-16] MEDS: Aspirin 81 MG Tab.Chew PO SCH (09:46)
[2018-02-16] MEDS: Insulin Detemir 100 Units/ML 3 ML Pen SUBCUT SCH (09:47)
--- NOTE | 2018-02-16 11:49 | PCM.DCSUM1 ---
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 She had been discharged from the hospital on 02/11/2018 for anemia and acute on chronic CHF. Family reported she had been running fevers throughout the day, was more fatigued, and her right arm was uncomfortable. Her edema had also significantly worsened and she was short of breath. Throughout hospital stay, patient's WBC improved from 18 on admission to 12.7 at time of discharge. CRP also improved, from highest at 24.2 to 14.6 at time of discharge. Calcium was 8.0 on admission, but did drop to 6.5 on 02/14/2018. Patient received total of 2 gm calcium gluconate. Calcium 6.7 at time of discharge. Total protein normal. Hemoglobin was low, but stable throughout stay. On day of discharge, hgb was 9.7. On 02/08, from previous admission, hemoglobin was 7.7. She was transfused 2 units PRBCs at that admission. Creatinine was elevated on admission to 2.3. Creatinine had returned to baseline 1.4 on day of discharge. Patient recieved IVF, which will be stopped today. She was initially started on Rocephin for cellulitis, which was switched to Vanco after positive preliminary blood cultures showing gram positive cocci. Final blood culture report shows staph aureus, with sensitivity to Levaquin. On day of discharge, Vanco and Rocephin will be discontinued and Levaquin will be started. Cellulitis to RUE remains erythematous and tender to touch. Patient remains very weak and unable to get out of bed. Has had some low grade fevers, but for the most part patient has been afebrile. Sullivan catheter will remain in place for accurate I & O until patient is able to get up to the bathroom. She has had good urinary output. Will continue 40 mg IV lasix BID and continue to monitor intake and output. She is alert and oriented. PT will continue to work with patient. Encourage transfer to chair daily. Dr. Spain present on rounds and discussed patient's case with patient's daughter. Patient will be discharged to swing bed for continued IV antibiotics and physical therapy. She remains very weak and unable to get out of bed. She has not been able to ambulate since date of admission. She will need SNF placement upon discharge. Patient and family prefer [facility] in [place]. Patient will need to be on at least 10 days of IV antibiotics. Will remain in swing bed until course of IV antibiotics are finished and bed is available at [facility]. - Discharge Data Discharge Date: 02/16/18 Discharge Disposition: DC/Tfer W/I Hosp To Swing 61 Condition: Good - Discharge Diagnosis/Problem(s) (1) Sepsis due to Staphylococcus aureus with acute renal failure SNOMED Code(s): 664283542 ICD Code: A41.01 - SEPSIS DUE TO METHICILLIN SUSCEPTIBLE STAPHYLOCOCCUS AUREUS; R65.20 - SEVERE SEPSIS WITHOUT SEPTIC SHOCK; N17.9 - ACUTE KIDNEY FAILURE, UNSPECIFIED Status: Acute Priority: High (2) Cellulitis of right arm SNOMED Code(s): 922872128 ICD Code: L03.113 - CELLULITIS OF RIGHT UPPER LIMB Status: Acute Priority : High (3) Congestive heart failure SNOMED Code(s): 59594704 ICD Code: I50.9 - HEART FAILURE, UNSPECIFIED Status: Acute Priority: High Qualifiers: Heart failure type: systolic Heart failure chronicity: acute on chronic Qualified Code(s): I50.23 - Acute on chronic systolic (congestive) heart failure (4) Palliative care patient SNOMED Code(s): 102793065 ICD Code: Z51.5 - ENCOUNTER FOR PALLIATIVE CARE Status: Chronic Priority : High (5) Anemia SNOMED Code(s): 911042510 ICD Code: D64.9 - ANEMIA, UNSPECIFIED Status: Chronic Qualifiers: Anemia type: due to chronic kidney disease Chronic kidney disease stage: unspecified stage Qualified Code(s): N18.9 - Chronic kidney disease, unspecified; D63.1 - Anemia in chronic kidney disease; D63.1 - Anemia in chronic kidney disease - Patient Summary/Data Consults: Consultations 02/16/18 11:04 Consult to Physical Therapy [PT Evaluation and Treatment] [CONS] Routine - Patient Instructions Diet: Usual Diet as Tolerated, Diabetic Diet Activity: As Tolerated - Discharge Plan Home Medications: Home Meds Aspirin [Halfprin] 81 mg PO DAILY 01/24/14 [History] Brimonidine [Alphagan P 0.1% Ophth Soln] 1 drop EYEBOTH TID 01/24/14 [History] Cholecalciferol (Vitamin D3) [Vitamin D3] 2,000 unit PO DAILY 01/24/14 [History] Ferrous Sulfate 325 mg PO DAILY 01/24/14 [History] Insulin Detemir [Levemir Flexpen] 3 - 4 units SUBCUT BID 01/24/14 [History] Latanoprost 1 drop EYEBOTH BEDTIME 01/24/14 [History] Magnesium Chloride [Magnesium Dr] 2 tab PO 1200,199901/24/14 [History] atorvaSTATin [Lipitor] 10 mg PO 1200 01/24/14 [History] cloNIDine [Catapres] 0.5 tab PO BID 01/24/14 [History] Furosemide [Lasix] 40 mg PO BID 10/29/14 [History] Denosumab [Prolia] 60 mg SUBCUT Q180D 01/05/16 [History] Carvedilol 3.125 mg PO BID 12/26/16 [History] ALPRAZolam [Alprazolam] 0.5 mg PO QID PRN 02/08/18 [History] Cefuroxime Axetil [Cefuroxime] 1 tab PO BID PRN 02/08/18 [History] Methylcellulose [Citrucel] 1 tab PO DAILY 02/08/18 [History] prednisoLONE Acetate [Pred Forte 1% Ophth Susp] 1 drop EYELF ASDIRECTED [History] Calcium Carb & Citrate/Vit D3 [Citracal + D ER] 1 each PO DAILY 02/12/18 [ History] Warfarin [Coumadin] 2.5 mg PO SUMOTUTHSA 02/12/18 [History] Warfarin [Coumadin] 5 mg PO WEFR 02/12/18 [History] Forms: ED Department Discharge Referrals: Bud Spain MD [Primary Care Provider] - - General Info Date of Service: 02/16/18 Admission Dx/Problem (Free Text: Cellulitis Fever Sepsis Acute on chronic systolic CHF Subjective Update: Patient reports she has continued redness and tenderness to RUE. She remains very weak. Has not been able to get out of bed much. Feels her swelling in her legs has improved. Functional Status: Reports: Pain Controlled, Tolerating Diet, Urinating (Sullivan catheter). Denies: Ambulating - Review of Systems General: Reports: Fever (low grade), Weakness, Fatigue HEENT: Reports: No Symptoms Pulmonary: Denies: Shortness of Breath, Cough, Sputum, Wheezing Cardiovascular: Reports: Dyspnea on Exertion, Edema. Denies: Chest Pain, Lightheadedness Gastrointestinal: Reports: Decreased Appetite. Denies: Abdominal Pain, Diarrhea , Nausea, Vomiting Genitourinary: Reports: Other (Sullivan catheter) Musculoskeletal: Reports: Arm Pain (RUE) Skin: Reports: Other (erythema to RUE) Neurological: Reports: Difficulty Walking, Weakness. Denies: Confusion, Dizziness, Headache, Numbness, Syncope, Tingling Psychiatric: Reports: No Symptoms. Denies: Confusion - Patient Data Vitals - Most Recent: Last Vital Signs Temp 97.9 F 02/15/18 19:52 Pulse 92 02/15/18 19:52 Resp 20 02/15/18 19:52 BP 121/53 L 02/15/18 19:52 Pulse Ox 97 02/15/18 19:52 Weight - Most Recent: 129 lb 1.6 oz I&O - Last 24 hours: Intake & Output 02/15/18 02/16/18 02/16/18 22:59 06:59 14:59 Intake Total 1000 Output Total 900 Balance 100 Lab Results - Last 24 hrs: Laboratory Results - last 24 hr 02/15/18 02/15/18 02/16/18 Range/Units 13:10 20:17 07:15 WBC (5.0-10.0) 10^3/uL RBC (4.00-5.50) 10^6/uL Hgb (12.0-16.0) g/dL Hct (37.0-47.0) % MCV (82.0-94.0) fL MCH (27.0-32.0) pg MCHC (33.0-38.0) g/dL RDW Coeff of Amie (11.0-15.0) % Plt Count (150-400) 10^3/uL Neut % (Auto) (35-85) % Lymph % (Auto) (10-55) % [place] % (Auto) (0-16) % Eos % (Auto) (0-5) % Baso % (Auto) (0-3) % Neut # (Auto) (1.80-7.00) 10^3/uL Lymph # (Auto) (1.00-4.80) 10^3/uL [place] # (Auto) (0.00-0.80) 10^3/uL Eos # (Auto) (0.00-0.45) 10^3/uL Baso # (Auto) 10^3/uL PT (9.7-12.3) SEC INR (0.92-1.18) Sodium (136-145) mEq/L Potassium (3.5-5.0) mEq/L Chloride (98-106) mEq/L Carbon Dioxide (21-32) mmol/L BUN (7-18) mg/dL Creatinine (0.6-1.0) mg/dL Est Cr Clr Drug Dosing mL/min Estimated GFR (MDRD) (>=60) mL/min Glucose (75-99) mg/dL POC Glucose 237 H 97 (75-105) mg/dl Calcium (8.4-10.1) mg/dL C-Reactive Protein (0.2-0.8) mg/dL Vancomycin Trough 8.7 L (10-20) ug/mL 02/16/18 02/16/18 02/16/18 Range/Units 07:25 07:25 07:25 WBC 12.7 H (5.0-10.0) 10^3/uL RBC 2.90 L (4.00-5.50) 10^6/uL Hgb 9.8 L (12.0-16.0) g/dL Hct 30.2 L (37.0-47.0) % MCV 104.1 H (82.0-94.0) fL MCH 33.8 H (27.0-32.0) pg MCHC 32.5 L (33.0-38.0) g/dL RDW Coeff of Amie 18.7 H (11.0-15.0) % Plt Count 72 L (150-400) 10^3/uL Neut % (Auto) 87.4 H (35-85) % Lymph % (Auto) 6.3 L (10-55) % [place] % (Auto) 5.7 (0-16) % Eos % (Auto) 0.6 (0-5) % Baso % (Auto) 0 (0-3) % Neut # (Auto) 11.06 H (1.80-7.00) 10^3/uL Lymph # (Auto) 0.80 L (1.00-4.80) 10^3/uL [place] # (Auto) 0.72 (0.00-0.80) 10^3/uL Eos # (Auto) 0.08 (0.00-0.45) 10^3/uL Baso # (Auto) 0.00 10^3/uL PT 15.4 H (9.7-12.3) SEC INR 1.53 H (0.92-1.18) Sodium 133 L (136-145) mEq/L Potassium 3.8 D (3.5-5.0) mEq/L Chloride 100 (98-106) mEq/L Carbon Dioxide 22 (21-32) mmol/L BUN 55 H (7-18) mg/dL Creatinine 1.4 H (0.6-1.0) mg/dL Est Cr Clr Drug Dosing 20.96 mL/min Estimated GFR (MDRD) 35 L (>=60) mL/min Glucose 102 H (75-99) mg/dL POC Glucose (75-105) mg/dl Calcium 6.7 L* (8.4-10.1) mg/dL C-Reactive Protein 14.6 H (0.2-0.8) mg/dL Vancomycin Trough (10-20) ug/mL ANDREINA Results - Last 24 hrs: Microbiology 02/12/18 18:35 Aerobic Blood Culture - Final Blood Staphylococcus Aureus Anaerobic Blood Culture - Final 02/12/18 18:45 Aerobic Blood Culture - Preliminary Blood Gram Positive Cocci Anaerobic Blood Culture - Final Med Orders - Current: Current Medications Acetaminophen (Tylenol) 650 mg PO Q4H PRN PRN Reason: Pain (Mild 1-3)/fever Last Admin: 02/14/18 23:33 Dose: 650 mg Alprazolam (Xanax) 0.5 mg PO QID PRN PRN Reason: ANXIETY Last Admin: 02/15/18 15:39 Dose: 0.5 mg Aspirin (Aspirin) 81 mg PO WITHBREAKFAST EVELYN Last Admin: 02/16/18 09:46 Dose: Not Given Brimonidine Tartrate (Alphagan 0.2% Ophth Soln) 0 ml EYEBOTH TID [facility] Last Admin: 02/16/18 09:45 Dose: Not Given Carvedilol (Coreg) 3.125 mg PO BIDM [facility] Last Admin: 02/16/18 09:46 Dose: Not Given Furosemide (Lasix) 40 mg IVPUSH BID [facility] Last Admin: 02/16/18 09:46 Dose: Not Given Levofloxacin/Dextrose 250 mg/ (Premix) 50 mls @ 50 mls/hr IV Q24H [facility] Insulin Detemir (Levemir) 3 - 4 unit SUBCUT BID [facility] Last Admin: 02/16/18 09:47 Dose: Not Given Latanoprost (Xalatan 0.005% Ophth Soln) 0 ml EYEBOTH BEDTIME [facility] Last Admin: 02/15/18 19:45 Dose: 1 drop Morphine Sulfate (Morphine) 1 - 2 mg IVPUSH Q1H PRN PRN Reason: Pain Sodium Chloride (Saline Flush) 10 ml FLUSH ASDIRECTED PRN PRN Reason: Keep Vein Open Warfarin Sodium (Coumadin) 5 mg PO ONETIME ONE Stop: 02/16/18 12:01 Discontinued Medications Alprazolam (Xanax) 0.5 mg PO QID PRN PRN Reason: Anxiety Alprazolam (Alprazolam Odt) 0.5 mg PO QID PRN PRN Reason: Anxiety Alprazolam (Alprazolam Odt) 0.5 mg PO QID PRN PRN Reason: Anxiety Aspirin (Halfprin) 81 mg PO DAILY [facility] Atorvastatin Calcium (Lipitor) 10 mg PO DAILY@1200 [facility] Calcium Carbonate (Calcium Carbonate/Vitamin D 1250 Mg-200 Unit) 1 tab PO DAILY [facility] Carvedilol (Coreg) 3.125 mg PO BID [facility] Last Admin: 02/12/18 20:41 Dose: 3.125 mg Ceftriaxone Sodium (Rocephin) 1 gm IVPUSH Q24H [facility] Last Admin: 02/12/18 20:38 Dose: 1 gm Ceftriaxone Sodium (Rocephin) 1 gm IVPUSH Q24H [facility] Last Admin: 02/13/18 11:41 Dose: Not Given Ceftriaxone Sodium (Rocephin) 1 gm IVPUSH Q24H [facility] Last Admin: 02/15/18 19:44 Dose: 1 gm Cholecalciferol (Vitamin D3) 2,000 units PO DAILY [facility] Clonidine HCl (Catapres) 0.05 mg PO BID [facility] Last Admin: 02/12/18 20:41 Dose: 0.05 mg Ferrous Sulfate (Ferrous Sulfate) 324 mg PO DAILY [facility] Furosemide (Lasix) 40 mg IVPUSH DAILY [facility] Last Admin: 02/12/18 20:52 Dose: 40 mg Furosemide (Lasix) 40 mg IVPUSH ONETIME ONE Stop: 02/13/18 02:03 Last Admin: 02/13/18 02:49 Dose: 40 mg Sodium Chloride (Sodium Chloride 0.45%) Confirm Administered Dose 1,000 mls @ as directed .ROUTE .STK-MED ONE Stop: 02/13/18 01:18 Last Admin: 02/13/18 01:33 Dose: Not Given Sodium Chloride (Sodium Chloride 0.45%) 1,000 mls @ 50 mls/hr IV ASDIRECTED [facility] Last Admin: 02/13/18 01:33 Dose: 50 mls/hr Phytonadione 1 mg/ Sodium (Chloride) 50.1 mls @ 100 mls/hr IV NOW ONE Stop: 02/14/18 12:04 Last Admin: 02/14/18 12:24 Dose: Not Given Vancomycin HCl 1 gm/ Sodium (Chloride) 250 mls @ 167 mls/hr IV Q24H [facility] Vancomycin HCl 1 gm/ Sodium (Chloride) 250 mls @ 167 mls/hr IV ONETIME ONE Stop: 02/14/18 13:29 Last Admin: 02/14/18 12:18 Dose: 167 mls/hr Sodium Chloride (Sodium Chloride 0.45%) 1,000 mls @ 75 mls/hr IV ASDIRECTED [facility] Last Admin: 02/15/18 21:35 Dose: 75 mls/hr Sodium Chloride (Sodium Chloride 0.45%) 1,000 mls @ 250 mls/hr IV ASDIRECTED [facility] Last Admin: 02/14/18 13:51 Dose: 250 mls/hr Calcium Gluconate 1 gm/ Sodium (Chloride) 110 mls @ 100 mls/hr IV ONETIME ONE Stop: 02/15/18 10:49 Last Admin: 02/15/18 09:54 Dose: 100 mls/hr Vancomycin HCl 1 gm/ Sodium (Chloride) 250 mls @ 167 mls/hr IV Q24H [facility] Last Admin: 02/15/18 15:02 Dose: Not Given Ibuprofen (Motrin) 400 mg PO ONETIME ONE Stop: 02/12/18 23:10 Last Admin: 02/12/18 23:11 Dose: 400 mg Insulin Detemir (Levemir) 3 - 4 unit SUBCUT BID [facility] Last Admin: 02/12/18 20:43 Dose: 3 unit Latanoprost (Xalatan 0.005% Ophth Soln) 0 ml EYEBOTH BEDTIME [facility] Last Admin: 02/12/18 20:43 Dose: 1 drop Magnesium Chloride (Mag-64) 128 mg PO BID@1200,2000 [facility] Last Admin: 02/12/18 20:38 Dose: 128 mg Non-Formulary Medication (Brimonidine [Alphagan P 0.1% Ophth Soln]) 1 drop EYEBOTH TID [facility] Last Admin: 02/13/18 06:20 Dose: Not Given Ondansetron HCl (Zofran Odt) 4 mg PO Q4H PRN PRN Reason: nausea, able to take PO Pantoprazole Sodium (Protonix Iv) 40 mg IVPUSH Q24H [facility] Last Admin: 02/12/18 20:38 Dose: 40 mg Phytonadione (Aquamephyton) Confirm Administered Dose 10 mg .ROUTE .STK-MED ONE Stop: 02/14/18 11:46 Last Admin: 02/14/18 12:24 Dose: Not Given Phytonadione (Aquamephyton) 1 mg SUBCUT ONETIME ONE Stop: 02/14/18 12:08 Last Admin: 02/14/18 12:17 Dose: 1 mg Prednisolone Acetate (Pred Forte 1% Ophth Susp) ml EYELF ASDIRECTED [facility] Prednisolone Acetate (Pred Forte 1% Ophth Susp) 0 ml EYELF DAILY [facility] Prednisolone Acetate (Pred Forte 1% Ophth Susp) 0 ml EYELF TID [facility] Last Admin: 02/15/18 09:11 Dose: Not Given Vancomycin HCl (Pharmacy To Dose - Vancomycin) 1 dose .XX ASDIRECTED [facility] Warfarin Sodium (Coumadin) 2.5 mg PO SuMoTuThSa@1200 [facility] Warfarin Sodium (Coumadin) 5 mg PO WeFr@1200 [facility] - Exam Quality Assessment: Reports: Urine Catheter, DVT Prophylaxis General: Reports: Alert, Oriented, No Acute Distress Neck: Reports: Supple Lungs: Reports: Clear to Auscultation, Normal Respiratory Effort Cardiovascular: Reports: Irregular Rhythm, Other (click) GI/Abdominal Exam: Normal Bowel Sounds, Soft, Non-Tender, No Organomegaly, No Distention, No Abnormal Bruit, No Mass, Pelvis Stable Back Exam: Reports: Normal Inspection, Full Range of Motion Extremities: Normal Range of Motion, Normal Capillary Refill, Pedal Edema, Arm Pain (RUE), Increased Warmth (RUE), Redness (RUE). No: Slow Capillary Refill Skin: Reports: Warm, Dry, Intact Neurological: Reports: No New Focal Deficit Psy/Mental Status: Reports: Alert, Normal Affect, Normal Mood
[2018-02-16] MEDS ORDERED: Warfarin 5 MG Tab PO ONE (12:00)
[2018-02-16] MEDS ORDERED: Levofloxacin/Dextrose 5%-Water 250 MG in Premix Bag 1 BAG IV SCH (12:00)
[2018-02-17] MEDS ORDERED: Warfarin 5 MG Tab PO SCH (12:00)
== END 2018-02-16 11:38 | disposition swing bed (61) | DRG 871 ==
LOC: CC.ED 18:00 → UNDOADMIN 19:33 → CC.MS 19:33
PROVIDERS: ADMIT Physician Assistant Medical; ATTEND General Practice
DX: A41.01 Sepsis due to Methicillin susceptible Staphylococcus aureus (principal); I50.23 Acute on chronic systolic (congestive) heart failure; L03.113 Cellulitis of right upper limb; I11.0 Hypertensive heart disease with heart failure; E78.00 Pure hypercholesterolemia, unspecified; E11.9 Type 2 diabetes mellitus without complications; R50.9 Fever, unspecified; R53.83 Other fatigue; R60.0 Localized edema; R06.02 Shortness of breath; R53.1 Weakness; N39.0 Urinary tract infection, site not specified; I13.0 Hypertensive heart and chronic kidney disease with heart failure and stage 1 through stage 4 chronic kidney disease, or unspecified chronic kidney disease; N17.9 Acute kidney failure, unspecified; R65.20 Severe sepsis without septic shock; E11.22 Type 2 diabetes mellitus with diabetic chronic kidney disease; N18.9 Chronic kidney disease, unspecified; D63.1 Anemia in chronic kidney disease; E78.5 Hyperlipidemia, unspecified; E83.51 Hypocalcemia; I48.91 Unspecified atrial fibrillation; M19.90 Unspecified osteoarthritis, unspecified site; H54.7 Unspecified visual loss; M81.0 Age-related osteoporosis without current pathological fracture; Z95.2 Presence of prosthetic heart valve; Z95.0 Presence of cardiac pacemaker; Z79.01 Long term (current) use of anticoagulants; Z79.82 Long term (current) use of aspirin; Z79.4 Long term (current) use of insulin; Z79.899 Other long term (current) drug therapy; Z51.5 Encounter for palliative care
CPT/HCPCS: 36415; 51702; 71045; 80048; 80053; 80202; 81001; 82962; 83880; 85025; 85610; 86140; 87040; 87077; 87186; 93005; 99284; A9270-GY; C9113; J0610; J0696; J1815-GY; J1940; J3370; J3430; J7030; J7050

== ENCOUNTER 2018-02-16 11:38 | Inpatient (IN) | payer MEDICARE, BC ==
[2018-02-16] MEDS ORDERED: ALPRAZolam 0.25 MG Tab PO PRN (13:04)
[2018-02-16] MEDS ORDERED: Sodium Chloride 0.9% 10 ML Syringe FLUSH PRN ×2 (13:04)
[2018-02-16] MEDS ORDERED: Morphine 2 MG/ML Syringe IVPUSH PRN (13:04)
[2018-02-16] MEDS ORDERED: Calcium Gluconate 1 GM in Sodium Chloride 0.9% 100 ML IV ONE (14:30)
[2018-02-16] MEDS ORDERED: Warfarin 5 MG Tab PO ONE (14:45)
[2018-02-16] MEDS: Brimonidine 0.2% Ophth Soln 5 ML Bottle EYEBOTH SCH ×2 (15:17→19:35)
[2018-02-16] MEDS: Furosemide 40 MG/4 ML VIAL IVPUSH SCH (16:06)
[2018-02-16] MEDS: Carvedilol 3.125 MG Tab PO SCH (17:41)
[2018-02-16] MEDS: Latanoprost 0.005% Ophth Soln 2.5 ML Bottle EYEBOTH SCH (19:34)
[2018-02-16] MEDS: Acetaminophen 325 MG Tab PO PRN (19:38)
[2018-02-16] MEDS: Insulin Detemir 100 Units/ML 3 ML Pen SUBCUT SCH (21:01)
[2018-02-17] MEDS: Aspirin 81 MG Tab.Chew PO SCH (08:02)
[2018-02-17] MEDS: Carvedilol 3.125 MG Tab PO SCH ×2 (08:02→16:43)
[2018-02-17] MEDS: Furosemide 40 MG/4 ML VIAL IVPUSH SCH ×2 (08:02→16:43)
[2018-02-17] MEDS: Brimonidine 0.2% Ophth Soln 5 ML Bottle EYEBOTH SCH ×3 (08:04→20:44)
[2018-02-17] MEDS: Insulin Detemir 100 Units/ML 3 ML Pen SUBCUT SCH ×2 (08:05→20:39)
[2018-02-17] MEDS: Calcium Carbonate/Vitamin D3 1250 MG-200 Unit Tab PO SCH (08:12)
[2018-02-17] MEDS ORDERED: Magnesium Hydroxide 400 MG/5 ML Susp 30 ML Cup PO PRN (08:22)
--- NOTE | 2018-02-17 08:31 | PCM.PN ---
- General Info Date of Service: 02/17/18 Admission Dx/Problem (Free Text): Cellulitis RUE Acute on Chronic CHF Acute on Chronic renal insufficiency Subjective Update: Tala remains very weak and fatigued. She reports she is feeling ok. PT did attempt to get her out of bed yesterday, but had difficulty. She struggled to sit at EOB. Functional Status: Reports: Pain Controlled, Tolerating Diet, Urinating (Sullivan catheter). Denies: Ambulating - Review of Systems General: Reports: Weakness, Fatigue. Denies: Fever Pulmonary: Reports: Wheezing. Denies: Shortness of Breath, Cough, Sputum Cardiovascular: Reports: Dyspnea on Exertion, Edema. Denies: Chest Pain, Palpitations, Lightheadedness Gastrointestinal: Reports: Constipation (LBM 325), Decreased Appetite. Denies : Abdominal Pain, Diarrhea, Nausea, Vomiting Genitourinary: Reports: No Symptoms, Other (Sullivan catheter) Musculoskeletal: Reports: Arm Pain Skin: Reports: Other (redness to RUE) Neurological: Reports: Difficulty Walking, Weakness. Denies: Confusion, Dizziness, Numbness, Syncope, Tingling Psychiatric: Reports: No Symptoms - Patient Data Vitals - Most Recent: Last Vital Signs Temp 97.7 F 02/17/18 08:00 Pulse 95 02/17/18 08:00 Resp 20 02/17/18 08:00 BP 124/55 L 02/17/18 08:00 Pulse Ox 99 02/17/18 08:00 Weight - Most Recent: 129 lb I&O - Last 24 Hours: Intake & Output 02/16/18 02/17/18 02/17/18 22:59 06:59 14:59 Output Total 1350 Balance -1350 Lab Results Last 24 Hours: Laboratory Results - last 24 hr 02/16/18 02/17/18 02/17/18 Range/Units 20:49 07:00 07:00 WBC 10.2 H (5.0-10.0) 10^3/uL RBC 2.89 L (4.00-5.50) 10^6/uL Hgb 9.7 L (12.0-16.0) g/dL Hct 30.3 L (37.0-47.0) % MCV 104.8 H (82.0-94.0) fL MCH 33.6 H (27.0-32.0) pg MCHC 32.0 L (33.0-38.0) g/dL RDW Coeff of Amie 18.7 H (11.0-15.0) % Plt Count 83 L (150-400) 10^3/uL Neut % (Auto) 82.9 (35-85) % Lymph % (Auto) 7.6 L (10-55) % [place] % (Auto) 8.3 (0-16) % Eos % (Auto) 1.1 (0-5) % Baso % (Auto) 0.1 (0-3) % Neut # (Auto) 8.49 H (1.80-7.00) 10^3/uL Lymph # (Auto) 0.78 L (1.00-4.80) 10^3/uL [place] # (Auto) 0.85 H (0.00-0.80) 10^3/uL Eos # (Auto) 0.11 (0.00-0.45) 10^3/uL Baso # (Auto) 0.01 10^3/uL PT 13.1 H (9.7-12.3) SEC INR 1.28 H (0.92-1.18) Sodium (136-145) mEq/L Potassium (3.5-5.0) mEq/L Chloride (98-106) mEq/L Carbon Dioxide (21-32) mmol/L BUN (7-18) mg/dL Creatinine (0.6-1.0) mg/dL Est Cr Clr Drug Dosing mL/min Estimated GFR (MDRD) (>=60) mL/min Glucose (75-99) mg/dL POC Glucose 185 H (75-105) mg/dl Calcium (8.4-10.1) mg/dL C-Reactive Protein (0.2-0.8) mg/dL 02/17/18 02/17/18 Range/Units 07:00 07:27 WBC (5.0-10.0) 10^3/uL RBC (4.00-5.50) 10^6/uL Hgb (12.0-16.0) g/dL Hct (37.0-47.0) % MCV (82.0-94.0) fL MCH (27.0-32.0) pg MCHC (33.0-38.0) g/dL RDW Coeff of Amie (11.0-15.0) % Plt Count (150-400) 10^3/uL Neut % (Auto) (35-85) % Lymph % (Auto) (10-55) % [place] % (Auto) (0-16) % Eos % (Auto) (0-5) % Baso % (Auto) (0-3) % Neut # (Auto) (1.80-7.00) 10^3/uL Lymph # (Auto) (1.00-4.80) 10^3/uL [place] # (Auto) (0.00-0.80) 10^3/uL Eos # (Auto) (0.00-0.45) 10^3/uL Baso # (Auto) 10^3/uL PT (9.7-12.3) SEC INR (0.92-1.18) Sodium 136 (136-145) mEq/L Potassium 3.5 (3.5-5.0) mEq/L Chloride 103 (98-106) mEq/L Carbon Dioxide 24 (21-32) mmol/L BUN 50 H (7-18) mg/dL Creatinine 1.1 H (0.6-1.0) mg/dL Est Cr Clr Drug Dosing 26.68 mL/min Estimated GFR (MDRD) 47 L (>=60) mL/min Glucose 125 H (75-99) mg/dL POC Glucose 126 H (75-105) mg/dl Calcium 7.2 L (8.4-10.1) mg/dL C-Reactive Protein 11.6 H (0.2-0.8) mg/dL Med Orders - Current: Current Medications Acetaminophen (Tylenol) 650 mg PO Q4H PRN PRN Reason: Pain (Mild 1-3)/fever Last Admin: 02/16/18 19:38 Dose: 650 mg Alprazolam (Xanax) 0.5 mg PO QID PRN PRN Reason: ANXIETY Aspirin (Aspirin) 81 mg PO WITHBREAKFAST ON LICENSE OF [facility] Last Admin: 02/17/18 08:02 Dose: 81 mg Brimonidine Tartrate (Alphagan 0.2% Ophth Soln) 0 ml EYEBOTH TID ON LICENSE OF [facility] Last Admin: 02/17/18 08:04 Dose: 1 drop Calcium Carbonate (Calcium Carbonate/Vitamin D 1250 Mg-200 Unit) 1 tab PO DAILY ON LICENSE OF [facility] Last Admin: 02/17/18 08:12 Dose: 1 tab Carvedilol (Coreg) 3.125 mg PO BIDM ON LICENSE OF [facility] Last Admin: 02/17/18 08:02 Dose: 3.125 mg Furosemide (Lasix) 40 mg IVPUSH BID@0800,1600 ON LICENSE OF [facility] Last Admin: 02/17/18 08:02 Dose: 40 mg Levofloxacin/Dextrose 250 mg/ (Premix) 50 mls @ 50 mls/hr IV Q24H ON LICENSE OF [facility] Insulin Detemir (Levemir) 3 - 4 unit SUBCUT BID ON LICENSE OF [facility] Last Admin: 02/17/18 08:05 Dose: 4 units Latanoprost (Xalatan 0.005% Ophth Soln) 0 ml EYEBOTH BEDTIME ON LICENSE OF [facility] Last Admin: 02/16/18 19:34 Dose: 1 drop Magnesium Hydroxide (Milk Of Magnesia) 30 ml PO BID PRN PRN Reason: Constipation Morphine Sulfate (Morphine) 1 - 2 mg IVPUSH Q1H PRN PRN Reason: Pain Sodium Chloride (Saline Flush) 10 ml FLUSH ASDIRECTED PRN PRN Reason: Keep Vein Open Spironolactone (Aldactone) 12.5 mg PO DAILY ON LICENSE OF [facility] Warfarin Sodium (Coumadin) 5 mg PO ONETIME ONE Stop: 02/17/18 12:01 Discontinued Medications Calcium Gluconate 1 gm/ Sodium (Chloride) 110 mls @ 55 mls/hr IV ONETIME ONE Stop: 02/16/18 16:29 Last Admin: 02/16/18 15:10 Dose: 55 mls/hr Sodium Chloride (Saline Flush) 10 ml FLUSH ASDIRECTED PRN PRN Reason: Keep Vein Open Warfarin Sodium (Coumadin) 5 mg PO ONETIME ONE Stop: 02/16/18 14:46 Last Admin: 02/16/18 14:51 Dose: Not Given Warfarin Sodium (Coumadin) 5 mg PO ONETIME ONE Stop: 02/18/18 12:01 - Exam Quality Assessment: Supplemental Oxygen, Urine Catheter, DVT Prophylaxis General: Alert, Oriented, No Acute Distress Neck: Supple Lungs: Clear to Auscultation, Normal Respiratory Effort Cardiovascular: Irregular Rhythm, Other (click) GI/Abdominal Exam: Normal Bowel Sounds, Soft, Non-Tender, No Organomegaly, No Distention, No Abnormal Bruit, No Mass, Pelvis Stable Back Exam: Normal Inspection, Full Range of Motion Extremities: Normal Range of Motion, Normal Capillary Refill, Pedal Edema (2+ pitting to BLE), Arm Pain (RUE), Increased Warmth (RUE), Redness (RUE) Peripheral Pulses: 1+: Radial (R) Skin: Warm, Dry, Intact, Other (redness to RUE) Neurological: No New Focal Deficit Psy/Mental Status: Alert, Normal Affect, Normal Mood - Problem List & Annotations (1) Cellulitis of right arm SNOMED Code(s): 244546630 Code(s): L03.113 - CELLULITIS OF RIGHT UPPER LIMB Status: Acute Priority : High Current Visit: No (2) Congestive heart failure SNOMED Code(s): 33529661 Code(s): I50.9 - HEART FAILURE, UNSPECIFIED Status: Acute Priority: High Current Visit: No Qualifiers: Heart failure type: systolic Heart failure chronicity: acute on chronic Qualified Code(s): I50.23 - Acute on chronic systolic (congestive) heart failure (3) Sepsis due to Staphylococcus aureus with acute renal failure SNOMED Code(s): 657924657 Code(s): A41.01 - SEPSIS DUE TO METHICILLIN SUSCEPTIBLE STAPHYLOCOCCUS AUREUS ; R65.20 - SEVERE SEPSIS WITHOUT SEPTIC SHOCK; N17.9 - ACUTE KIDNEY FAILURE, UNSPECIFIED Status: Acute Priority: High Current Visit: No (4) Anemia SNOMED Code(s): 594231623 Code(s): D64.9 - ANEMIA, UNSPECIFIED Status: Chronic Current Visit: No Qualifiers: Anemia type: due to chronic kidney disease Chronic kidney disease stage: unspecified stage Qualified Code(s): N18.9 - Chronic kidney disease, unspecified; D63.1 - Anemia in chronic kidney disease; D63.1 - Anemia in chronic kidney disease (5) Palliative care patient SNOMED Code(s): 526009657 Code(s): Z51.5 - ENCOUNTER FOR PALLIATIVE CARE Status: Chronic Priority: High Current Visit: No - Problem List Review Problem List Initiated/Reviewed/Updated: Yes - My Orders Last 24 Hours: My Active Orders 02/16/18 13:04 Patient Status [ADT] Routine Sullivan Catheter Insertion [Insert Urinary Catheter] [OM.PC] Q24H Oxygen Therapy [RC] PRN POC Glucose [Blood Glucose Check, Bedside] [RC] BIDMEALS Ready for Discharge [RC] BIDMEALS Urinary Catheter Assessment [RC] 799,1999 Urinary Catheter Assessment [RC] ASDIRECTED Consult to Physical Therapy [PT Evaluation and Treatment] [CONS] Routine ALPRAZolam [Xanax] 0.5 mg PO QID PRN Acetaminophen [Tylenol] 650 mg PO Q4H PRN Morphine 1 - 2 mg IVPUSH Q1H PRN Sodium Chloride 0.9% [Saline Flush] 10 ml FLUSH ASDIRECTED PRN Saline Lock Insert [OM.PC] Routine 02/16/18 13:50 Code Status [Resuscitation Status] Routine 02/16/18 14:00 Brimonidine [Alphagan 0.2% Ophth Soln] See Dose Instructions EYEBOTH TID 02/16/18 16:00 Furosemide [Lasix] 40 mg IVPUSH BID@0800,1600 02/16/18 17:30 Carvedilol [Coreg] 3.125 mg PO BIDM 02/16/18 20:00 Vital Signs [RC] 799,1999 Insulin Detemir [Levemir] 3 - 4 unit SUBCUT BID Latanoprost [Xalatan 0.005% Ophth Soln] See Dose Instructions EYEBOTH BEDTIME 02/16/18 Breakfast Consistent Carbohydrate Diet [DIET] 02/17/18 08:00 Aspirin 81 mg PO WITHBREAKFAST Calcium Carbonate/Vitamin D3 [Calcium Carbonate/Vitamin D 1250 MG-200 Unit] 1 tab PO DAILY 02/17/18 08:22 Magnesium Hydroxide [Milk of Magnesia] 30 ml PO BID PRN 02/17/18 08:30 Spironolactone [Aldactone] 12.5 mg PO DAILY 02/17/18 12:00 Levofloxacin/Dextrose 5%-Water [Levaquin in D5W 250 MG/50 ML] 250 mg Premix Bag 1 bag IV Q24H Warfarin [Coumadin] 5 mg PO ONETIME 02/18/18 06:00 BMP [BASIC METABOLIC PANEL,BMP] [CHEM] DAILY C-REACTIVE PROTEIN [CHEM] DAILY CBC WITH AUTO DIFF [HEME] DAILY INR,PT,PROTHROMBIN TIME [COAG] DAILY - Plan Plan:: 02/17/2018 Blood culture show staph aureus sensitive to Levaquin. Continue levaquin. WBC and CRP trending down. Will try Kpad to RUE. Creatinine improved to 1.1 today. 1350 urine output yesterday. Continue strict I & O. Continue Sullivan catheter. Patient continues to be very weak and fatigued. PT to continue to work with patient. Encourage patient to get up to chair. She will need SNF placement upon d/c. Will need to continue Levaquin for 7 days. Levaquin was not started yesterday by error, so will be started 02/17/2018 and continue until 02/24/2018. Patient continues to have 2+ pitting edema to BLE. Continue lasix 40 mg IV BID. Will also add spironalactone 12.5 mg PO daily. INR 1.28. Will dose 5 mg Coumadin today. Calcium improved to 7.2. Hgb stable at 9.7. Patient has not had BM since Wednesday 02/14. Will add MOM and colace as needed. Patient will try prune juice this morning. Denies any abdominal pain, N/V. Patient seen and examined by Dr. [place], who agrees with POC.
[2018-02-17] MEDS: Spironolactone 25 MG Tab PO SCH (08:57)
[2018-02-17] MEDS: Levofloxacin/Dextrose 5%-Water 250 MG in Premix Bag 1 BAG IV SCH (08:58)
[2018-02-17] MEDS ORDERED: Warfarin 5 MG Tab PO ONE (12:00)
[2018-02-17] MEDS: Latanoprost 0.005% Ophth Soln 2.5 ML Bottle EYEBOTH SCH (20:45)
[2018-02-18] MEDS: Carvedilol 3.125 MG Tab PO SCH ×2 (07:56→17:39)
[2018-02-18] MEDS: Calcium Carbonate/Vitamin D3 1250 MG-200 Unit Tab PO SCH (07:56)
[2018-02-18] MEDS: Spironolactone 25 MG Tab PO SCH (07:56)
[2018-02-18] MEDS: Aspirin 81 MG Tab.Chew PO SCH (07:56)
[2018-02-18] MEDS: Brimonidine 0.2% Ophth Soln 5 ML Bottle EYEBOTH SCH ×3 (07:58→20:19)
[2018-02-18] MEDS: Levofloxacin/Dextrose 5%-Water 250 MG in Premix Bag 1 BAG IV SCH (07:59)
[2018-02-18] MEDS: Insulin Detemir 100 Units/ML 3 ML Pen SUBCUT SCH ×2 (08:00→20:18)
[2018-02-18] MEDS: Furosemide 40 MG/4 ML VIAL IVPUSH SCH ×2 (08:00→16:22)
[2018-02-18] MEDS: Warfarin 5 MG Tab PO SCH (08:20)
[2018-02-18] MEDS ORDERED: Warfarin 2 MG Tab PO ONE (12:00)
[2018-02-18] MEDS: Latanoprost 0.005% Ophth Soln 2.5 ML Bottle EYEBOTH SCH (20:19)
[2018-02-19] MEDS: Spironolactone 25 MG Tab PO SCH (08:14)
[2018-02-19] MEDS: Brimonidine 0.2% Ophth Soln 5 ML Bottle EYEBOTH SCH ×3 (08:15→19:55)
[2018-02-19] MEDS: Furosemide 40 MG/4 ML VIAL IVPUSH SCH ×2 (08:15→15:01)
[2018-02-19] MEDS: Aspirin 81 MG Tab.Chew PO SCH (08:15)
[2018-02-19] MEDS: Calcium Carbonate/Vitamin D3 1250 MG-200 Unit Tab PO SCH (08:15)
[2018-02-19] MEDS: Warfarin 5 MG Tab PO SCH (08:15)
[2018-02-19] MEDS: Carvedilol 3.125 MG Tab PO SCH ×2 (08:15→18:40)
[2018-02-19] MEDS: Insulin Detemir 100 Units/ML 3 ML Pen SUBCUT SCH ×2 (08:16→19:53)
[2018-02-19] MEDS: Levofloxacin/Dextrose 5%-Water 250 MG in Premix Bag 1 BAG IV SCH (08:16)
[2018-02-19] MEDS: Warfarin 2 MG Tab PO SCH (12:21)
[2018-02-19] MEDS: Latanoprost 0.005% Ophth Soln 2.5 ML Bottle EYEBOTH SCH (19:53)
[2018-02-19] MEDS: Acetaminophen 325 MG Tab PO PRN (19:59)
[2018-02-20] MEDS: Aspirin 81 MG Tab.Chew PO SCH (07:51)
[2018-02-20] MEDS: Spironolactone 25 MG Tab PO SCH (07:51)
[2018-02-20] MEDS: Brimonidine 0.2% Ophth Soln 5 ML Bottle EYEBOTH SCH ×3 (07:52→20:04)
[2018-02-20] MEDS: Calcium Carbonate/Vitamin D3 1250 MG-200 Unit Tab PO SCH (07:52)
[2018-02-20] MEDS: Carvedilol 3.125 MG Tab PO SCH ×2 (07:52→17:38)
[2018-02-20] MEDS: Insulin Detemir 100 Units/ML 3 ML Pen SUBCUT SCH ×2 (08:52→20:03)
[2018-02-20] MEDS: Furosemide 40 MG/4 ML VIAL IVPUSH SCH ×2 (08:55→17:39)
[2018-02-20] MEDS: Levofloxacin/Dextrose 5%-Water 250 MG in Premix Bag 1 BAG IV SCH (08:58)
[2018-02-20] MEDS: Warfarin 2 MG Tab PO SCH (09:56)
[2018-02-20] MEDS: Latanoprost 0.005% Ophth Soln 2.5 ML Bottle EYEBOTH SCH (20:04)
[2018-02-21] MEDS: Acetaminophen 325 MG Tab PO PRN (00:04)
[2018-02-21] MEDS: Levofloxacin/Dextrose 5%-Water 250 MG in Premix Bag 1 BAG IV SCH (07:49)
[2018-02-21] MEDS: Furosemide 40 MG/4 ML VIAL IVPUSH SCH ×2 (07:50→17:39)
[2018-02-21] MEDS: Aspirin 81 MG Tab.Chew PO SCH (07:52)
[2018-02-21] MEDS: Carvedilol 3.125 MG Tab PO SCH ×2 (07:52→17:40)
[2018-02-21] MEDS: Calcium Carbonate/Vitamin D3 1250 MG-200 Unit Tab PO SCH (07:53)
[2018-02-21] MEDS: Spironolactone 25 MG Tab PO SCH (07:53)
[2018-02-21] MEDS: Brimonidine 0.2% Ophth Soln 5 ML Bottle EYEBOTH SCH ×3 (07:54→19:38)
[2018-02-21] MEDS: Warfarin 2 MG Tab PO SCH (07:56)
[2018-02-21] MEDS: Insulin Detemir 100 Units/ML 3 ML Pen SUBCUT SCH ×2 (07:58→19:40)
[2018-02-21] MEDS: Latanoprost 0.005% Ophth Soln 2.5 ML Bottle EYEBOTH SCH (19:39)
[2018-02-21] MEDS: Bacitracin Oint 28.35 GM Tube TOP SCH (21:26)
--- NOTE | 2018-02-21 21:27 | PCM.SN ---
- Free Text/Narrative Note: RN asked me to examine patient RUMendel. Patient had IV that had infiltrated, it has gone from phlebitis to now appears cellultiic phlebitis to the right arm. The is red, warm to touch, has three small areas of hard swelling, not fluctulant abscess. THe cx at this time shows no growth. I will add Rocephin for this. Pulses +2, cap refill < sec, sensory/motor function intact. Neurovascular intact. Patient otherwise stable. PCP will see tomorrow.
[2018-02-21] MEDS: cefTRIAXone 1 GM Vial IVPUSH SCH (21:38)
[2018-02-22] MEDS: Carvedilol 3.125 MG Tab PO SCH ×2 (07:40→17:10)
[2018-02-22] MEDS: Aspirin 81 MG Tab.Chew PO SCH (07:41)
[2018-02-22] MEDS: Calcium Carbonate/Vitamin D3 1250 MG-200 Unit Tab PO SCH (07:41)
[2018-02-22] MEDS: Spironolactone 25 MG Tab PO SCH (07:41)
[2018-02-22] MEDS: Furosemide 40 MG/4 ML VIAL IVPUSH SCH ×2 (07:41→15:49)
[2018-02-22] MEDS: Bacitracin Oint 28.35 GM Tube TOP SCH ×2 (07:42→20:12)
[2018-02-22] MEDS: Brimonidine 0.2% Ophth Soln 5 ML Bottle EYEBOTH SCH ×3 (07:42→20:13)
[2018-02-22] MEDS: Levofloxacin/Dextrose 5%-Water 250 MG in Premix Bag 1 BAG IV SCH (07:44)
[2018-02-22] MEDS: Insulin Detemir 100 Units/ML 3 ML Pen SUBCUT SCH ×2 (07:50→20:13)
[2018-02-22] MEDS: Warfarin 2 MG Tab PO SCH (08:07)
[2018-02-22] MEDS: Latanoprost 0.005% Ophth Soln 2.5 ML Bottle EYEBOTH SCH (20:14)
[2018-02-22] MEDS: Acetaminophen 325 MG Tab PO PRN (20:21)
[2018-02-22] MEDS: cefTRIAXone 1 GM Vial IVPUSH SCH (21:22)
[2018-02-23] MEDS: Spironolactone 25 MG Tab PO SCH (07:15)
[2018-02-23] MEDS: Aspirin 81 MG Tab.Chew PO SCH (07:17)
[2018-02-23] MEDS: Brimonidine 0.2% Ophth Soln 5 ML Bottle EYEBOTH SCH (07:17)
[2018-02-23] MEDS: Bacitracin Oint 28.35 GM Tube TOP SCH (07:17)
[2018-02-23] MEDS: Calcium Carbonate/Vitamin D3 1250 MG-200 Unit Tab PO SCH (07:18)
[2018-02-23] MEDS: Furosemide 40 MG/4 ML VIAL IVPUSH SCH (07:18)
[2018-02-23] MEDS: Levofloxacin/Dextrose 5%-Water 250 MG in Premix Bag 1 BAG IV SCH (07:19)
[2018-02-23] MEDS: Carvedilol 3.125 MG Tab PO SCH (07:25)
[2018-02-23 07:26] VITALS: BP 127/56
[2018-02-23] MEDS: Insulin Detemir 100 Units/ML 3 ML Pen SUBCUT SCH (07:36)
[2018-02-23] MEDS: Warfarin 2 MG Tab PO SCH (08:08)
--- NOTE | 2018-02-23 09:06 | PCM.DCSUM1 ---
Discharge Summary - Hospital Course HPI Initial Comments: Tala is an 87-year-old female with a past medical history of congestive heart failure, chronic renal insufficiency, type 2 diabetes, hypertension, hyperlipidemia, aortic valve prosthesis, and atrial fibrillation, who was admitted to the hospital from the emergency department on February 12, 2018 for cellulitis of the right arm and acute on chronic systolic CHF. She had been discharged from the hospital on February 11 for anemia and acute on chronic CHF. Family had reported she was running fevers throughout the day, was more fatigued , and her right arm is more uncomfortable. They also reported that her edema had significantly worsened and she was more short of breath. Patient was discharged from [facility] on February 12, and admitted to swing bed for further IV antibiotics, strengthening with physical therapy, and bed availability at the local [facility]. Throughout her hospital stay, patient's white blood cell improved from 18 on admission to 8.4 at the time of discharge. CRP also improved , from highest at 24.2-10.5 at the time of discharge calcium was at 8.0 on admission, but did drop to 6.5 on February 14. She was given a total of 2 g calcium gluconate IV. At the time of discharge her calcium was at 7.8, however her albumin was low at 2.1. Hemoglobin was low, but stable throughout stay. On discharge hemoglobin was 9.9. On February 08, from a previous admission, hemoglobin was lowest at 7.7. She was transfused 2 units packed red blood cells without admission. He was elevated on admission to 2.3. She was given IV fluids , and her creatinine did return to baseline of 1.1 at the time of discharge. She was originally started on Rocephin for cellulitis, which was switched to vancomycin after positive preliminary blood culture showing gram-positive cocci. Final blood culture report shows staph aureus, with sensitivity to Levaquin. She was then switched to Levaquin for a total of 10 days of IV antibiotics. All 10 days were infused throughout hospital stay, and her last dose was given on the day of discharge. Cellulitis to right upper extremity remains erythematous and tender to touch. Patient does report it is feeling better. Her blood sugars were controlled throughout hospital stay. A of discharge she remains weak, but has been up ambulating in the room and getting up to the bathroom with assistance. She continues to have 2+ pitting edema to bilateral lower extremities. Legs were Yg wrap during the day. Recommend this continues upon discharge at the [facility]. She has been afebrile. Sullivan catheter was removed on the day of discharge and patient voided prior to leaving for the [facility]. Patient will be discharged home on 40 mg Lasix at morning and noon. She will also be discharged on 12.5 mg spironolactone daily. She will go home on a 2 mg daily dose of Coumadin. Her INR on the date of discharge was 2.84. INR will be rechecked on February 26. A basic metabolic panel will be repeated in 2 weeks. We will also continue to use Bactroban ointment to her right upper extremity twice daily upon discharge. On the day of discharge, she was requiring 1 L oxygen to maintain oxygen saturations. Oxygen will be used as needed at the [facility] to maintain oxygenation. Patient will be discharged to the [facility] as she is unable to return home safely. Physical therapy will continue to work with her at the [facility] for strengthening. Dr. Spain will round on for a recheck of her edema and cellulitis when he does [facility]ci rounds. - Discharge Data Discharge Date: 02/23/18 Discharge Disposition: DC/Tfer to [facility] 03 Condition: Fair - Discharge Diagnosis/Problem(s) (1) Cellulitis of right arm SNOMED Code(s): 271585865 ICD Code: L03.113 - CELLULITIS OF RIGHT UPPER LIMB Status: Acute Priority : High (2) Congestive heart failure SNOMED Code(s): 74035795 ICD Code: I50.9 - HEART FAILURE, UNSPECIFIED Status: Chronic Priority: High Qualifiers: Heart failure type: systolic Heart failure chronicity: acute on chronic Qualified Code(s): I50.23 - Acute on chronic systolic (congestive) heart failure (3) Sepsis due to Staphylococcus aureus with acute renal failure SNOMED Code(s): 267036821 ICD Code: A41.01 - SEPSIS DUE TO METHICILLIN SUSCEPTIBLE STAPHYLOCOCCUS AUREUS; R65.20 - SEVERE SEPSIS WITHOUT SEPTIC SHOCK; N17.9 - ACUTE KIDNEY FAILURE, UNSPECIFIED Status: Acute Priority: High (4) Anemia SNOMED Code(s): 950429045 ICD Code: D64.9 - ANEMIA, UNSPECIFIED Status: Chronic Qualifiers: Anemia type: due to chronic kidney disease Chronic kidney disease stage: unspecified stage Qualified Code(s): N18.9 - Chronic kidney disease, unspecified; D63.1 - Anemia in chronic kidney disease; D63.1 - Anemia in chronic kidney disease (5) Palliative care patient SNOMED Code(s): 559029625 ICD Code: Z51.5 - ENCOUNTER FOR PALLIATIVE CARE Status: Chronic Priority : High (6) Type II diabetes mellitus SNOMED Code(s): 08734986 ICD Code: E11.9 - TYPE 2 DIABETES MELLITUS WITHOUT COMPLICATIONS Status: Chronic Qualifiers: Diabetes mellitus fpc insulin use: with fpc use Diabetes mellitus complication status: with kidney complications Diabetes mellitus complication detail: with chronic kidney disease Chronic kidney disease stage : unspecified stage Qualified Code(s): E11.22 - Type 2 diabetes mellitus with diabetic chronic kidney disease; Z79.4 - terminal manager (current) use of insulin (7) Atrial fibrillation SNOMED Code(s): 42374395 ICD Code: I48.91 - UNSPECIFIED ATRIAL FIBRILLATION Status: Chronic Qualifiers: Atrial fibrillation type: chronic Qualified Code(s): I48.2 - Chronic atrial fibrillation (8) Mechanical heart valve present SNOMED Code(s): 45402295171009, 36668245, 608329680, 819199793, [id number] ICD Code: Z95.2 - PRESENCE OF PROSTHETIC HEART VALVE Status: Chronic - Patient Summary/Data Consults: Consultations 02/16/18 13:04 Consult to Physical Therapy [PT Evaluation and Treatment] [CONS] Routine - Patient Instructions Diet: Heart Healthy Diet, Diabetic Diet Activity: As Tolerated Notify Provider of: Fever, Increased Pain, Swelling and Redness, Drainage, Nausea and/or Vomiting - Discharge Plan Prescriptions/Med Rec: Mupirocin Oint [Bactroban Oint] 22 gm TRDERM BID #1 tube Spironolactone [Aldactone] 12.5 mg PO DAILY #90 tablet Warfarin [Coumadin] 2 mg PO DAILY #90 tablet Home Medications: Home Meds Aspirin [Halfprin] 81 mg PO DAILY 01/24/14 [History] Brimonidine [Alphagan P 0.1% Ophth Soln] 1 drop EYEBOTH TID 01/24/14 [History] Cholecalciferol (Vitamin D3) [Vitamin D3] 2,000 unit PO DAILY 01/24/14 [History] Ferrous Sulfate 325 mg PO DAILY 01/24/14 [History] Insulin Detemir [Levemir Flexpen] 3 - 4 units SUBCUT BID 01/24/14 [History] Latanoprost 1 drop EYEBOTH BEDTIME 01/24/14 [History] Magnesium Chloride [Magnesium Dr] 2 tab PO 1200,2000 01/24/14 [History] atorvaSTATin [Lipitor] 10 mg PO 1200 01/24/14 [History] cloNIDine [Catapres] 0.5 tab PO BID 01/24/14 [History] Furosemide [Lasix] 40 mg PO BID 10/29/14 [History] Denosumab [Prolia] 60 mg SUBCUT Q180D 01/05/16 [History] Carvedilol 3.125 mg PO BID 12/26/16 [History] ALPRAZolam [Alprazolam] 0.5 mg PO QID PRN 02/08/18 [History] Methylcellulose [Citrucel] 1 tab PO DAILY 02/08/18 [History] prednisoLONE Acetate [Pred Forte 1% Ophth Susp] 1 drop EYELF ASDIRECTED [History] Calcium Carb & Citrate/Vit D3 [Citracal + D ER] 1 each PO DAILY 02/12/18 [ History] Mupirocin Oint [Bactroban Oint] 22 gm TRDERM BID #1 tube 02/23/18 [Rx] Spironolactone [Aldactone] 12.5 mg PO DAILY #90 tablet 02/23/18 [Rx] Warfarin [Coumadin] 2 mg PO DAILY #90 tablet 02/23/18 [Rx] Referrals: Bud Spain MD [Primary Care Provider] - - General Info Admission Dx/Problem (Free Text: Cellulitis RUE Acute on Chronic CHF Acute on Chronic renal insufficiency Functional Status: Reports: Pain Controlled, Tolerating Diet, Ambulating, Urinating. Denies: New Symptoms - Review of Systems General: Reports: Weakness, Fatigue. Denies: Fever, Chills HEENT: Reports: No Symptoms Pulmonary: Reports: Shortness of Breath Cardiovascular: Reports: Dyspnea on Exertion, Orthopnea, Edema Gastrointestinal: Reports: No Symptoms Genitourinary: Reports: No Symptoms Musculoskeletal: Reports: Back Pain (tailbone pain) Skin: Reports: No Symptoms Neurological: Reports: No Symptoms Psychiatric: Reports: No Symptoms - Patient Data Vitals - Most Recent: Last Vital Signs Temp 96.4 F 02/23/18 08:00 Pulse 107 H 02/23/18 08:00 Resp 20 02/23/18 08:00 BP 127/56 L 02/23/18 08:00 Pulse Ox 94 L 02/23/18 08:00 Weight - Most Recent: 124 lb 12.8 oz I&O - Last 24 hours: Intake & Output 02/22/18 02/23/18 02/23/18 22:59 06:59 14:59 Output Total 1100 300 Balance -1100 -300 Lab Results - Last 24 hrs: Laboratory Results - last 24 hr 02/22/18 02/23/18 02/23/18 Range/Units 19:33 06:55 06:55 WBC 8.4 (5.0-10.0) 10^3/uL RBC 2.96 L (4.00-5.50) 10^6/uL Hgb 9.9 L (12.0-16.0) g/dL Hct 30.8 L (37.0-47.0) % MCV 104.1 H (82.0-94.0) fL MCH 33.4 H (27.0-32.0) pg MCHC 32.1 L (33.0-38.0) g/dL RDW Coeff of Amie 19.0 H (11.0-15.0) % Plt Count 175 (150-400) 10^3/uL Neut % (Auto) 76.4 (35-85) % Lymph % (Auto) 13.7 (10-55) % [place] % (Auto) 7.6 (0-16) % Eos % (Auto) 1.9 (0-5) % Baso % (Auto) 0.4 (0-3) % Neut # (Auto) 6.45 (1.80-7.00) 10^3/uL Lymph # (Auto) 1.16 (1.00-4.80) 10^3/uL [place] # (Auto) 0.64 (0.00-0.80) 10^3/uL Eos # (Auto) 0.16 (0.00-0.45) 10^3/uL Baso # (Auto) 0.03 10^3/uL PT 27.3 H (9.7-12.3) SEC INR 2.84 H (0.92-1.18) Sodium (136-145) mEq/L Potassium (3.5-5.0) mEq/L Chloride (98-106) mEq/L Carbon Dioxide (21-32) mmol/L BUN (7-18) mg/dL Creatinine (0.6-1.0) mg/dL Est Cr Clr Drug Dosing mL/min Estimated GFR (MDRD) (>=60) mL/min Glucose (75-99) mg/dL POC Glucose 183 H (75-105) mg/dl Calcium (8.4-10.1) mg/dL C-Reactive Protein (0.2-0.8) mg/dL 02/23/18 02/23/18 Range/Units 06:55 07:25 WBC (5.0-10.0) 10^3/uL RBC (4.00-5.50) 10^6/uL Hgb (12.0-16.0) g/dL Hct (37.0-47.0) % MCV (82.0-94.0) fL MCH (27.0-32.0) pg MCHC (33.0-38.0) g/dL RDW Coeff of Amie (11.0-15.0) % Plt Count (150-400) 10^3/uL Neut % (Auto) (35-85) % Lymph % (Auto) (10-55) % [place] % (Auto) (0-16) % Eos % (Auto) (0-5) % Baso % (Auto) (0-3) % Neut # (Auto) (1.80-7.00) 10^3/uL Lymph # (Auto) (1.00-4.80) 10^3/uL [place] # (Auto) (0.00-0.80) 10^3/uL Eos # (Auto) (0.00-0.45) 10^3/uL Baso # (Auto) 10^3/uL PT (9.7-12.3) SEC INR (0.92-1.18) Sodium 137 (136-145) mEq/L Potassium 4.1 (3.5-5.0) mEq/L Chloride 102 (98-106) mEq/L Carbon Dioxide 28 (21-32) mmol/L BUN 41 H (7-18) mg/dL Creatinine 1.1 H (0.6-1.0) mg/dL Est Cr Clr Drug Dosing 26.68 mL/min Estimated GFR (MDRD) 47 L (>=60) mL/min Glucose 115 H (75-99) mg/dL POC Glucose 117 H (75-105) mg/dl Calcium 7.8 L (8.4-10.1) mg/dL C-Reactive Protein 10.5 H (0.2-0.8) mg/dL ANDREINA Results - Last 24 hrs: Microbiology 02/20/18 14:15 Wound Culture - Final Arm, Right NO GROWTH AFTER 2 DAYS Med Orders - Current: Current Medications Acetaminophen (Tylenol) 650 mg PO Q4H PRN PRN Reason: Pain (Mild 1-3)/fever Last Admin: 02/22/18 20:21 Dose: 650 mg Alprazolam (Xanax) 0.5 mg PO QID PRN PRN Reason: ANXIETY Last Admin: 02/22/18 22:15 Dose: 0.5 mg Aspirin (Aspirin) 81 mg PO WITHBREAKFAST [facility] Last Admin: 02/23/18 07:17 Dose: 81 mg Bacitracin (Bacitracin Oint) 1 gm TOP BID [facility] Last Admin: 02/23/18 07:17 Dose: 28.35 applic Brimonidine Tartrate (Alphagan 0.2% Ophth Soln) 0 ml EYEBOTH TID [facility] Last Admin: 02/23/18 07:17 Dose: 1 drop Calcium Carbonate (Calcium Carbonate/Vitamin D 1250 Mg-200 Unit) 1 tab PO DAILY [facility] Last Admin: 02/23/18 07:18 Dose: 1 tab Carvedilol (Coreg) 3.125 mg PO BIDM [facility] Last Admin: 02/23/18 07:25 Dose: 3.125 mg Ceftriaxone Sodium (Rocephin) 1 gm IVPUSH Q24H [facility] Last Admin: 02/22/18 21:22 Dose: 1 gm Furosemide (Lasix) 40 mg IVPUSH BID@0800,1600 [facility] Last Admin: 02/23/18 07:18 Dose: 40 mg Levofloxacin/Dextrose 250 mg/ (Premix) 50 mls @ 50 mls/hr IV DAILY@0800 [facility] Last Admin: 02/23/18 07:19 Dose: 50 mls/hr Insulin Detemir (Levemir) 3 - 4 unit SUBCUT BID [facility] Last Admin: 02/23/18 07:36 Dose: 3 units Latanoprost (Xalatan 0.005% Ophth Soln) 0 ml EYEBOTH BEDTIME [facility] Last Admin: 02/22/18 20:14 Dose: 1 drop Magnesium Hydroxide (Milk Of Magnesia) 30 ml PO BID PRN PRN Reason: Constipation Morphine Sulfate (Morphine) 1 - 2 mg IVPUSH Q1H PRN PRN Reason: Pain Last Admin: 02/22/18 22:15 Dose: 2 mg Sodium Chloride (Saline Flush) 10 ml FLUSH ASDIRECTED PRN PRN Reason: Keep Vein Open Spironolactone (Aldactone) 12.5 mg PO DAILY [facility] Last Admin: 02/23/18 07:15 Dose: 12.5 mg Warfarin Sodium (Coumadin) 2 mg PO DAILY [facility] Last Admin: 02/23/18 08:08 Dose: 2 mg Discontinued Medications Calcium Gluconate 1 gm/ Sodium (Chloride) 110 mls @ 55 mls/hr IV ONETIME ONE Stop: 02/16/18 16:29 Last Admin: 02/16/18 15:10 Dose: 55 mls/hr Sodium Chloride (Saline Flush) 10 ml FLUSH ASDIRECTED PRN PRN Reason: Keep Vein Open Warfarin Sodium (Coumadin) 5 mg PO ONETIME ONE Stop: 02/16/18 14:46 Last Admin: 02/16/18 14:51 Dose: Not Given Warfarin Sodium (Coumadin) 5 mg PO ONETIME ONE Stop: 02/18/18 12:01 Warfarin Sodium (Coumadin) 5 mg PO ONETIME ONE Stop: 02/17/18 12:01 Last Admin: 02/17/18 13:09 Dose: 5 mg Warfarin Sodium (Coumadin) 5 mg PO DAILY [facility] Last Admin: 02/19/18 08:15 Dose: 5 mg - Exam Quality Assessment: Reports: Supplemental Oxygen General: Reports: Alert, Oriented, No Acute Distress Neck: Reports: Supple Lungs: Reports: Clear to Auscultation, Normal Respiratory Effort Cardiovascular: Reports: Regular Rate, Irregular Rhythm GI/Abdominal Exam: Normal Bowel Sounds, Soft, Non-Tender, No Organomegaly, No Distention, No Abnormal Bruit, No Mass, Pelvis Stable Back Exam: Reports: Normal Inspection, Full Range of Motion Extremities: Normal Range of Motion, Normal Capillary Refill, Pedal Edema (BLE 2 + pitting), Arm Pain (RUE), Redness (RUE) Skin: Reports: Warm, Dry, Intact Wound/Incisions: Reports: Healing Well Neurological: Reports: No New Focal Deficit Psy/Mental Status: Reports: Alert, Normal Affect, Normal Mood
== END 2018-02-23 10:05 | DRG 871 ==
LOC: UNDOADMIN 11:38 → CC.MS 11:38
PROVIDERS: ADMIT General Practice; ATTEND General Practice
DX: A41.01 Sepsis due to Methicillin susceptible Staphylococcus aureus (principal); I50.23 Acute on chronic systolic (congestive) heart failure; L03.113 Cellulitis of right upper limb; I13.0 Hypertensive heart and chronic kidney disease with heart failure and stage 1 through stage 4 chronic kidney disease, or unspecified chronic kidney disease; N17.9 Acute kidney failure, unspecified; T80.1XXA Vascular complications following infusion, transfusion and therapeutic injection, initial encounter; R65.20 Severe sepsis without septic shock; R53.83 Other fatigue; I80.8 Phlebitis and thrombophlebitis of other sites; R53.1 Weakness; R53.81 Other malaise; E11.22 Type 2 diabetes mellitus with diabetic chronic kidney disease; N18.9 Chronic kidney disease, unspecified; H54.7 Unspecified visual loss; I48.91 Unspecified atrial fibrillation; M19.90 Unspecified osteoarthritis, unspecified site; M81.0 Age-related osteoporosis without current pathological fracture; R06.2 Wheezing; K59.00 Constipation, unspecified; D63.1 Anemia in chronic kidney disease; E78.5 Hyperlipidemia, unspecified; Z88.1 Allergy status to other antibiotic agents; Z88.2 Allergy status to sulfonamides; Z66 Do not resuscitate; Z95.0 Presence of cardiac pacemaker; Z95.2 Presence of prosthetic heart valve; Z51.5 Encounter for palliative care; Z88.8 Allergy status to other drugs, medicaments and biological substances; Z79.82 Long term (current) use of aspirin; Z79.899 Other long term (current) drug therapy; Z79.01 Long term (current) use of anticoagulants; Z79.4 Long term (current) use of insulin
CPT/HCPCS: 36415; 80048; 80053; 82962; 85025; 85610; 86140; 87070; 97110-GP; 97162-GP; 97530-GP; A9270-GY; J0610; J0696; J1940; J1956; J2270; J7050

== ENCOUNTER 2018-03-08 13:10 | Inpatient (IN) | payer MEDICARE, BC ==
[2018-03-08 13:59] LABS: CHLORIDE,CL 97 mEq/L (98-106); SODIUM,NA 133 mEq/L (136-145)
[2018-03-08] MEDS ORDERED: Acetaminophen 325 MG Tab PO PRN (14:05)
[2018-03-08] MEDS ORDERED: Magnesium Hydroxide 400 MG/5 ML Susp 30 ML Cup PO PRN (14:05)
[2018-03-08] MEDS ORDERED: Sodium Chloride 0.9% 10 ML Syringe FLUSH PRN (14:05)
--- NOTE | 2018-03-08 14:19 | PCM.HP ---
H&P History of Present Illness - General Date of Service: 03/08/18 Source of Information: Patient, Family, Retirement Records History Limitations: Reports: No Limitations - History of Present Illness Initial Comments - Free Text/Narative: Tala is a pleasant 87 year old female with a PMH of CHF, chronic kidney disease, type II DM, mechanical valve on anticoagulation, stage II pressure ulcer to coccyx, who is admitted to the hospital as a direct admit from [facility] in [place]. She has been hospitalized a number of times in the past few months for worsening heart failure. She is up about 8 lbs from discharge. Case was discussed while patient was at [facility]. Dr. Spain recommended comfort cares. Family wanted patient brought to hospital for further workup and treatment. Patient reports she has had worsening nausea and dry heaving since last night. She reports she continues to be very weak and fatigued. She has not really been ambulatory for the past month. She denies any urinary symptoms, cough, shortness of breath, fever, chills. Does have a new pressure ulcer to her buttocks. She has not been eating or drinking much. Duration of Symptoms: Reports: Getting Worse Coccyxx Pain Score (Numeric/FACES): 5 - Related Data Allergies/Adverse Reactions: Allergies Allergy/AdvReac Type Severity Reaction Status Date / Time Sulfa (Sulfonamide Allergy Intermediate Rash Verified 02/16/18 12:59 Antibiotics) gentamicin [Gentamicin] Allergy Mild sore eyes Verified 02/16/18 12:59 hydralazine [Hydralazine] Allergy Mild Cannot Verified 02/16/18 12:59 Remember metoprolol Allergy Mild Fluid Verified 02/16/18 12:59 Retention selenium sulfide Allergy Mild Cannot Verified 02/16/18 12:59 Remember amoxicillin trihydrate Allergy Rash Verified 02/16/18 12:59 [From Augmentin] potassium clavulanate Allergy Rash Verified 02/16/18 12:59 [From Augmentin] rosiglitazone maleate Allergy Abdominal Verified 02/16/18 12:59 [From Avandia] Pain Yeast Allergy Abdominal Verified 02/16/18 12:59 Pain Home Medications: Home Meds Aspirin [Halfprin] 81 mg PO DAILY 01/24/14 [History] Brimonidine [Alphagan P 0.1% Ophth Soln] 1 drop EYEBOTH TID 01/24/14 [History] Cholecalciferol (Vitamin D3) [Vitamin D3] 2,000 unit PO DAILY 01/24/14 [History] Ferrous Sulfate 325 mg PO DAILY 01/24/14 [History] Insulin Detemir [Levemir Flexpen] 3 units SUBCUT BID 01/24/14 [History] Latanoprost 1 drop EYEBOTH BEDTIME 01/24/14 [History] atorvaSTATin [Lipitor] 10 mg PO 1200 01/24/14 [History] cloNIDine [Catapres] 0.05 mg PO BID 01/24/14 [History] Furosemide [Lasix] 40 mg PO BID 10/29/14 [History] Carvedilol 3.125 mg PO BID 12/26/16 [History] ALPRAZolam [Alprazolam] 0.5 mg PO QID PRN 02/08/18 [History] Calcium Carb & Citrate/Vit D3 [Citracal + D ER] 1 each PO DAILY 02/12/18 [ History] Spironolactone [Aldactone] 12.5 mg PO DAILY #90 tablet 02/23/18 [Rx] Warfarin [Coumadin] 2 mg PO DAILY #90 tablet 02/23/18 [Rx] Acetaminophen 650 mg PO Q4H PRN 03/08/18 [History] Hydrocodone/Acetaminophen [Hydrocodon-Acetaminophen 5-325] 1 each PO Q6H PRN [History] Hydrophyyllic Ointment 1 applic TOP BID 03/08/18 [History] Magnesium 500 mg PO BID 03/08/18 [History] Melatonin 5 mg PO BEDTIME 03/08/18 [History] Ondansetron HCl [Zofran] 4 mg PO Q6H PRN 03/08/18 [History] Psyllium with Sucrose [Metamucil] 1 each PO DAILY 03/08/18 [History] Past Medical History HEENT History: Reports: Impaired Vision Cardiovascular History: Reports: Afib, Heart Failure, Heart Murmur, Heart Valve Replacement, High Cholesterol, Hypertension, Pacemaker Musculoskeletal History: Reports: Arthritis Endocrine/Metabolic History: Reports: Diabetes, Type II, Osteoporosis Hematologic History: Reports: Anemia - Past Surgical History Cardiovascular Surgical History: Reports: Pacer, Valve Replacement GI Surgical History: Reports: Appendectomy Social & Family History - Family History Family Medical History: Noncontributory - Tobacco Use Smoking Status *Q: Never Smoker Second Hand Smoke Exposure: No - Caffeine Use Caffeine Use: Reports: Coffee - Alcohol Use Days Per Week of Alcohol Use: 0 - Recreational Drug Use Recreational Drug Use: No H&P Review of Systems - Review of Systems: Review Of Systems: See Below General: Reports: Weakness, Fatigue, Decreased Appetite, Weight Gain. Denies: Fever, Chills, Malaise HEENT: Reports: No Symptoms Pulmonary: Reports: Shortness of Breath. Denies: Wheezing, Cough, Sputum Cardiovascular: Reports: Dyspnea on Exertion, Orthopnea, Edema. Denies: Chest Pain, Palpitations, Lightheadedness, Syncope Gastrointestinal: Reports: Constipation, Decreased Appetite, Nausea, Vomiting ( dry heaves). Denies: Abdominal Pain, Diarrhea Genitourinary: Reports: No Symptoms. Denies: Dysuria, Frequency, Urgency, Incontinence Musculoskeletal: Reports: Back Pain (low back/coccyx) Skin: Reports: Wound Neurological: Reports: Difficulty Walking, Weakness. Denies: Confusion, Dizziness, Headache, Numbness, Tingling Hematologic/Lymphatic: Reports: Easy Bruising Immunologic: Reports: No Symptoms Exam - Exam Exam: See Below - Vital Signs Weight: 132 lb 1.6 oz - Exam Quality Assessment: Supplemental Oxygen, Skin Breakdown General: Alert, Oriented Neck: Supple, Trachea Midline, 2 Lungs: Normal Respiratory Effort, Wheezing Cardiovascular: Regular Rate, Irregular Rhythm, Systolic Murmur GI/Abdominal Exam: Normal Bowel Sounds, Soft, Non-Tender, No Organomegaly, No Distention, No Abnormal Bruit, No Mass, Pelvis Stable Extremities: Normal Range of Motion, Non-Tender, Normal Capillary Refill, Pedal Edema (3+), Other (3+ pitting edema to entire BLE). No: Leg Pain, Increased Warmth, Redness Peripheral Pulses: 1+: Posterior Tibial (L), Posterior Tibial (R), Dorsalis Pedis (L), Dorsalis Pedis (R) Skin: Warm, Dry, Decubitis (coccyx) Neurological: Cranial Nerves Intact Neuro Extensive - Mental Status: Alert, Oriented x3, Normal Mood/Affect, Normal Cognition, Memory Intact Psychiatric: Alert, Normal Affect, Normal Mood - Patient Data Result Diagrams: 03/08/18 13:34 03/08/18 13:34 - Problem List (1) Congestive heart failure SNOMED Code(s): 30426420 ICD Code: I50.9 - HEART FAILURE, UNSPECIFIED Status: Chronic Priority: High Current Visit: No Qualifiers: Heart failure type: systolic Heart failure chronicity: acute on chronic Qualified Code(s): I50.23 - Acute on chronic systolic (congestive) heart failure (2) Atrial fibrillation SNOMED Code(s): 60441834 ICD Code: I48.91 - UNSPECIFIED ATRIAL FIBRILLATION Status: Chronic Current Visit: No Qualifiers: (3) Mechanical heart valve present SNOMED Code(s): 43958353981202, 66117284, 523167333, 594532643, 30057212287266 ICD Code: Z95.2 - PRESENCE OF PROSTHETIC HEART VALVE Status: Chronic Current Visit: No (4) Palliative care patient SNOMED Code(s): 804674528 ICD Code: Z51.5 - ENCOUNTER FOR PALLIATIVE CARE Status: Chronic Priority : High Current Visit: No (5) Type II diabetes mellitus SNOMED Code(s): 96847952 ICD Code: E11.9 - TYPE 2 DIABETES MELLITUS WITHOUT COMPLICATIONS Status: Chronic Current Visit: No Qualifiers: Diabetes mellitus senior living insulin use: with senior living use Diabetes mellitus complication status: with kidney complications Diabetes mellitus complication detail: with chronic kidney disease Chronic kidney disease stage : unspecified stage Qualified Code(s): E11.22 - Type 2 diabetes mellitus with diabetic chronic kidney disease; Z79.4 - senior living (current) use of insulin (6) Acute on chronic renal insufficiency SNOMED Code(s): 294717445 ICD Code: N28.9 - DISORDER OF KIDNEY AND URETER, UNSPECIFIED; N18.9 - CHRONIC KIDNEY DISEASE, UNSPECIFIED Status: Chronic Current Visit: Yes (7) Generalized weakness SNOMED Code(s): 08520638 ICD Code: R53.1 - WEAKNESS Status: Acute Current Visit: Yes Problem List Initiated/Reviewed/Updated: Yes Assessment/Plan Comment:: Labs reviewed. INR elevated- hold Coumadin. BUN and creatinine elevated. 500 mL NS x1. ProBNP elevated. Zofran as needed for nausea 3+ pitting edema to BLE. Will start on 40 mg IV lasix Qd and 2.5 mg indapamide x [address] Spain. Recheck labs in am Discussed with family that her heart failure is a chronic issue and we are not going to be able to get all the fluid off. Discussed that it is difficult to get rid of the fluid when she also has renal insufficiency. Discussed that we recommend comfort cares as the prognosis is not good. Will discuss further with Dr. Spain tomorrow morning. Daughter from [place], who is a nurse, will be here tomorrow.
[2018-03-08] MEDS ORDERED: ALPRAZolam 0.25 MG Tab PO PRN (14:28)
[2018-03-08] MEDS ORDERED: Sodium Chloride 0.9% 500 ML IV ONE (15:30)
[2018-03-08] MEDS: Furosemide 40 MG/4 ML VIAL IVPUSH SCH (15:43)
[2018-03-08] MEDS: Acetaminophen/HYDROcodone 325-5 MG Tab PO PRN (15:48)
[2018-03-08] MEDS: Ondansetron 4 MG/2 ML SDV IV PRN (17:35)
[2018-03-08] MEDS: Brimonidine 0.2% Ophth Soln 5 ML Bottle EYEBOTH SCH (20:51)
[2018-03-08] MEDS: Latanoprost 0.005% Ophth Soln 2.5 ML Bottle EYEBOTH SCH (20:51)
[2018-03-08] MEDS: cloNIDine 0.1 MG Tab PO SCH (20:53)
[2018-03-08] MEDS: Carvedilol 3.125 MG Tab PO SCH (20:54)
[2018-03-08] MEDS: Insulin Detemir 100 Units/ML 3 ML Pen SUBCUT SCH (20:59)
[2018-03-08] MEDS: Temazepam 15 MG Cap PO PRN (21:08)
[2018-03-09] MEDS ORDERED: Warfarin 2 MG Tab PO SCH (08:00)
[2018-03-09] MEDS: Psyllium Husk Powder Sugar Free 5.85 GM Packet PO SCH (08:39)
[2018-03-09] MEDS: Spironolactone 25 MG Tab PO SCH (08:40)
[2018-03-09] MEDS: Carvedilol 3.125 MG Tab PO SCH ×2 (08:40→20:24)
[2018-03-09] MEDS: cloNIDine 0.1 MG Tab PO SCH ×2 (08:41→20:23)
[2018-03-09] MEDS: Ferrous Sulfate 324 MG Tab.EC PO SCH (08:41)
[2018-03-09] MEDS: Aspirin 81 MG Tab.EC PO SCH (08:41)
[2018-03-09] MEDS: Indapamide 2.5 MG Tab PO SCH (08:43)
[2018-03-09] MEDS: Brimonidine 0.2% Ophth Soln 5 ML Bottle EYEBOTH SCH ×3 (08:47→20:21)
[2018-03-09] MEDS: Insulin Detemir 100 Units/ML 3 ML Pen SUBCUT SCH ×2 (08:48→20:26)
--- NOTE | 2018-03-09 09:10 | PN ---
DATE: 03/09/2018 S: Tala Weathers is an elderly lady with end-stage left ventricular systolic congestive heart failure. Came back in to the ER from retirement because of family wanted her tuned up. O: NECK: Supple. CHEST: Crepitus bilaterally. EXTREMITIES: She had +1 pretibial edema and trace thigh edema. ASSESSMENT: END-STAGE LEFT VENTRICULAR SYSTOLIC CONGESTIVE HEART FAILURE, DIABETES MELLITUS, ANEMIA OF CHRONIC DISEASE. P: Long discussion about comfort cares with the patient were discussed. MIMI /[id number]
[2018-03-09] MEDS ORDERED: atorvaSTATin 10 MG Tab PO SCH (12:00)
[2018-03-09] MEDS: Furosemide 40 MG/4 ML VIAL IVPUSH SCH (12:11)
[2018-03-09] MEDS: Acetaminophen/HYDROcodone 325-5 MG Tab PO PRN (14:55)
[2018-03-09] MEDS: Ondansetron 4 MG/2 ML SDV IV PRN (18:33)
[2018-03-09] MEDS: Latanoprost 0.005% Ophth Soln 2.5 ML Bottle EYEBOTH SCH (20:24)
[2018-03-09] MEDS: Temazepam 15 MG Cap PO PRN (20:25)
[2018-03-10] MEDS: Carvedilol 3.125 MG Tab PO SCH (07:51)
[2018-03-10] MEDS: Aspirin 81 MG Tab.EC PO SCH (07:52)
[2018-03-10] MEDS: Spironolactone 25 MG Tab PO SCH (07:52)
[2018-03-10] MEDS: Ferrous Sulfate 324 MG Tab.EC PO SCH (07:52)
[2018-03-10] MEDS: Indapamide 2.5 MG Tab PO SCH (07:53)
[2018-03-10] MEDS: cloNIDine 0.1 MG Tab PO SCH (07:54)
[2018-03-10] MEDS: Psyllium Husk Powder Sugar Free 5.85 GM Packet PO SCH (07:54)
[2018-03-10] MEDS: Brimonidine 0.2% Ophth Soln 5 ML Bottle EYEBOTH SCH (07:55)
[2018-03-10 07:56] VITALS: BP 101/45
[2018-03-10] MEDS: Insulin Detemir 100 Units/ML 3 ML Pen SUBCUT SCH (07:56)
--- NOTE | 2018-03-10 08:01 | PCM.DCSUM1 ---
Discharge Summary - Hospital Course HPI Initial Comments: Tala is a pleasant 87 year old female with a PMH of CHF, Type II DM, HTN, hyperlipidemia, who was originally admitted to the hospital on 03/08/2018 for worsening CHF. She was reportedly very weak and unable to get out of bed. Family wanted her sent her to see if one more attempt at IV diuresis would get some of the excess fluid off. Patient was given IV lasix throughout hospital stay. Patients kidney function worsened throughout stay. BUN was 75 at admission and 80 at time of discharge. Creatinine was 2.1 on admission and 2.3 on discharge. ProBNP was 11,205. Swelling in her bilateral lower extremities did improve some. Edema was 3+ pitting upon admission and did improve slightly to 2+ pitting edema. Patient is also anemic. Hemoglobin was 9.2 at time of discharge. She was on coumadin. Her INR throughout stay was supratherapeutic and 4.19 at time of discharge. Coumadin will be stopped. Throughout hospital stay, patient c/o pain in her coccyx. She did have an open sore to that area upon admission. She was not eating or drinking much throughout stay. She remained very weak and had difficulty getting out of bed throughout stay. Both Dr. [place] and myself had long discussion with patient and family that this is chronic issue that is just going to keep recurring. The decision was made to return to [facility] with hospice. Patient will be discharged back to [facility] on hospice- comfort cares this morning. We will keep badillo catheter in place for comfort, as we are going to continue her lasix. Patient and families questions were answered. At the time of discharge patient was in good spirits and ready to return to [facility] on hospice. - Discharge Data Discharge Date: 03/10/18 Discharge Disposition: Home, Self-Care 01 Condition: Poor - Discharge Diagnosis/Problem(s) (1) Congestive heart failure SNOMED Code(s): 41341602 ICD Code: I50.9 - HEART FAILURE, UNSPECIFIED Status: Chronic Priority: High Current Visit: No Qualifiers: Heart failure type: systolic Heart failure chronicity: acute on chronic Qualified Code(s): I50.23 - Acute on chronic systolic (congestive) heart failure (2) Atrial fibrillation SNOMED Code(s): 57975245 ICD Code: I48.91 - UNSPECIFIED ATRIAL FIBRILLATION Status: Chronic Current Visit: No Qualifiers: Atrial fibrillation type: chronic (3) Mechanical heart valve present SNOMED Code(s): 12223912844495, 72860917, 442540886, 959020672, [id number] ICD Code: Z95.2 - PRESENCE OF PROSTHETIC HEART VALVE Status: Chronic Current Visit: No (4) Palliative care patient SNOMED Code(s): 501777130 ICD Code: Z51.5 - ENCOUNTER FOR PALLIATIVE CARE Status: Chronic Priority : High Current Visit: No (5) Type II diabetes mellitus SNOMED Code(s): 14931522 ICD Code: E11.9 - TYPE 2 DIABETES MELLITUS WITHOUT COMPLICATIONS Status: Chronic Current Visit: No Qualifiers: Diabetes mellitus mcc insulin use: with ferry terminal agent use Diabetes mellitus complication status: with kidney complications Diabetes mellitus complication detail: with chronic kidney disease Chronic kidney disease stage : unspecified stage Qualified Code(s): E11.22 - Type 2 diabetes mellitus with diabetic chronic kidney disease; Z79.4 - middle or intermediate school principal (current) use of insulin (6) Acute on chronic renal insufficiency SNOMED Code(s): 516309899 ICD Code: N28.9 - DISORDER OF KIDNEY AND URETER, UNSPECIFIED; N18.9 - CHRONIC KIDNEY DISEASE, UNSPECIFIED Status: Chronic Current Visit: Yes (7) Generalized weakness SNOMED Code(s): 39555480 ICD Code: R53.1 - WEAKNESS Status: Acute Current Visit: Yes - Patient Summary/Data Consults: Consultations 03/08/18 19:17 Consult to Physical Therapy [PT Evaluation and Treatment] [CONS] Routine - Patient Instructions Diet: Regular Diet as Tolerated Activity: As Tolerated - Discharge Plan Home Medications: Home Meds Brimonidine [Alphagan P 0.1% Ophth Soln] 1 drop EYEBOTH TID 01/24/14 [History] Insulin Detemir [Levemir Flexpen] 3 units SUBCUT BID 01/24/14 [History] Latanoprost 1 drop EYEBOTH BEDTIME 01/24/14 [History] Furosemide [Lasix] 40 mg PO BID 10/29/14 [History] ALPRAZolam [Alprazolam] 0.5 mg PO QID PRN 02/08/18 [History] Acetaminophen 650 mg PO Q4H PRN 03/08/18 [History] Hydrocodone/Acetaminophen [Hydrocodon-Acetaminophen 5-325] 1 each PO Q6H PRN [History] Hydrophyyllic Ointment 1 applic TOP BID 03/08/18 [History] Melatonin 5 mg PO BEDTIME 03/08/18 [History] Ondansetron HCl [Zofran] 4 mg PO Q6H PRN 03/08/18 [History] Patient Handouts: and Dying, Hospice, About Your Loved One's Last Days - Discharge Summary/Plan Comment DC Time >30 min.: Yes Discharge Summary/Plan Comment: Greater than 30 minutes were spent in care and coordination of this discharge, with greater than 20 minutes in face to face consultation with patient and family. - General Info Date of Service: 03/10/18 Admission Dx/Problem (Free Text: CHF Exacerbation Generalized weakness Type II DM Palliative Care Functional Status: Reports: Pain Controlled, Tolerating Diet, Urinating (Badillo) . Denies: Ambulating - Review of Systems General: Reports: Weakness, Fatigue. Denies: Fever, Chills Pulmonary: Reports: Shortness of Breath. Denies: Cough, Sputum, Wheezing Cardiovascular: Reports: Dyspnea on Exertion, Edema Gastrointestinal: Reports: Decreased Appetite. Denies: Abdominal Pain, Diarrhea , Nausea, Vomiting Genitourinary: Reports: No Symptoms Musculoskeletal: Reports: Back Pain (coccyx) Skin: Reports: Bruising Neurological: Reports: Difficulty Walking, Weakness Psychiatric: Reports: No Symptoms - Patient Data Vitals - Most Recent: Last Vital Signs Temp 97 F 03/10/18 07:55 Pulse 72 03/10/18 07:55 Resp 16 03/10/18 07:55 BP 101/45 L 03/10/18 07:55 Pulse Ox 100 03/10/18 07:55 Weight - Most Recent: 129 lb 9.6 oz I&O - Last 24 hours: Intake & Output 03/09/18 03/10/18 03/10/18 22:59 06:59 14:59 Intake Total 50 Output Total 250 350 Balance -250 -300 Lab Results - Last 24 hrs: Laboratory Results - last 24 hr 03/09/18 03/09/18 03/10/18 Range/Units 07:53 19:48 06:45 WBC (5.0-10.0) 10^3/uL RBC (4.00-5.50) 10^6/uL Hgb (12.0-16.0) g/dL Hct (37.0-47.0) % MCV (82.0-94.0) fL MCH (27.0-32.0) pg MCHC (33.0-38.0) g/dL RDW Coeff of Amie (11.0-15.0) % Plt Count (150-400) 10^3/uL Neut % (Auto) (35-85) % Lymph % (Auto) (10-55) % [place] % (Auto) (0-16) % Eos % (Auto) (0-5) % Baso % (Auto) (0-3) % Neut # (Auto) (1.80-7.00) 10^3/uL Lymph # (Auto) (1.00-4.80) 10^3/uL [place] # (Auto) (0.00-0.80) 10^3/uL Eos # (Auto) (0.00-0.45) 10^3/uL Baso # (Auto) 10^3/uL PT (9.7-12.3) SEC INR (0.92-1.18) Sodium 135 L (136-145) mEq/L Potassium 4.7 (3.5-5.0) mEq/L Chloride 99 (98-106) mEq/L Carbon Dioxide 28 (21-32) mmol/L BUN 80 H* (7-18) mg/dL Creatinine 2.3 H (0.6-1.0) mg/dL Est Cr Clr Drug Dosing 12.76 mL/min Estimated GFR (MDRD) 20 L (>=60) mL/min Glucose 85 D (75-99) mg/dL POC Glucose 93 143 H (75-105) mg/dl Calcium 7.9 L (8.4-10.1) mg/dL 18 18 03/10/18 Range/Units 07:00 07:05 07:25 WBC 7.4 (5.0-10.0) 10^3/uL RBC 2.76 L (4.00-5.50) 10^6/uL Hgb 9.2 L (12.0-16.0) g/dL Hct 30.1 L (37.0-47.0) % MCV 109.1 H (82.0-94.0) fL MCH 33.3 H (27.0-32.0) pg MCHC 30.6 L (33.0-38.0) g/dL RDW Coeff of Amie 20.4 H (11.0-15.0) % Plt Count 161 (150-400) 10^3/uL Neut % (Auto) 66.3 (35-85) % Lymph % (Auto) 22.9 (10-55) % [place] % (Auto) 9.6 (0-16) % Eos % (Auto) 1.1 (0-5) % Baso % (Auto) 0.1 (0-3) % Neut # (Auto) 4.90 (1.80-7.00) 10^3/uL Lymph # (Auto) 1.69 (1.00-4.80) 10^3/uL [place] # (Auto) 0.71 (0.00-0.80) 10^3/uL Eos # (Auto) 0.08 (0.00-0.45) 10^3/uL Baso # (Auto) 0.01 10^3/uL PT 39.2 H (9.7-12.3) SEC INR 4.19 H* (0.92-1.18) Sodium (136-145) mEq/L Potassium (3.5-5.0) mEq/L Chloride (98-106) mEq/L Carbon Dioxide (21-32) mmol/L BUN (7-18) mg/dL Creatinine (0.6-1.0) mg/dL Est Cr Clr Drug Dosing mL/min Estimated GFR (MDRD) (>=60) mL/min Glucose (75-99) mg/dL POC Glucose 80 (75-105) mg/dl Calcium (8.4-10.1) mg/dL Med Orders - Current: Current Medications Acetaminophen (Tylenol) 650 mg PO Q4H PRN PRN Reason: Pain (Mild 1-3)/fever Hydrocodone Bitart/Acetaminophen (Jasper 325-5 Mg) 1 tab PO Q6H PRN PRN Reason: Pain Last Admin: 03/09/18 14:55 Dose: 1 tab Alprazolam (Xanax) 0.5 mg PO QID PRN PRN Reason: Anxiety Aspirin (Halfprin) 81 mg PO DAILY [facility] Last Admin: 03/10/18 07:52 Dose: 81 mg Atorvastatin Calcium (Lipitor) 10 mg PO 1200 [facility] Last Admin: 03/09/18 12:11 Dose: 10 mg Brimonidine Tartrate (Alphagan 0.2% Oph Soln) 0 ml EYEBOTH TID [facility] Last Admin: 03/10/18 07:55 Dose: 1 drop Carvedilol (Coreg) 3.125 mg PO BID [facility] Last Admin: 03/10/18 07:51 Dose: 3.125 mg Clonidine HCl (Catapres) 0.05 mg PO BID [facility] Last Admin: 03/10/18 07:54 Dose: Not Given Ferrous Sulfate (Ferrous Sulfate) 324 mg PO DAILY [facility] Last Admin: 03/10/18 07:52 Dose: 324 mg Furosemide (Lasix) 40 mg IVPUSH DAILY@1200 [facility] Last Admin: 03/09/18 12:11 Dose: 40 mg Indapamide (Indapamide) 2.5 mg PO DAILY [facility] Stop: 03/11/18 08:01 Last Admin: 03/10/18 07:53 Dose: 2.5 mg Insulin Detemir (Levemir) 3 unit SUBCUT BID [facility] Last Admin: 03/10/18 07:56 Dose: 3 unit Latanoprost (Xalatan 0.005% [facility] Sol) 0 ml EYEBOTH BEDTIME [facility] Last Admin: 03/09/18 20:24 Dose: 1 drop Magnesium Hydroxide (Milk Of Magnesia) 30 ml PO Q12H PRN PRN Reason: Constipation Magnesium Oxide (Magnesium Oxide) 500 mg PO BID [facility] Last Admin: 03/08/18 20:52 Dose: 500 mg Ondansetron HCl (Zofran) 4 mg IV Q6H PRN PRN Reason: Nausea/Vomiting Last Admin: 03/09/18 18:33 Dose: 4 mg Psyllium Husk (Metamucil Sugar Free) 1 pkt PO DAILY [facility] Last Admin: 03/10/18 07:54 Dose: 1 pkt Sodium Chloride (Saline Flush) 10 ml FLUSH ASDIRECTED PRN PRN Reason: Keep Vein Open Spironolactone (Aldactone) 12.5 mg PO DAILY [facility] Last Admin: 03/10/18 07:52 Dose: 12.5 mg Temazepam (Restoril) 15 mg PO BEDTIME PRN PRN Reason: Sleep Last Admin: 03/09/18 20:25 Dose: 15 mg Discontinued Medications Sodium Chloride (Normal Saline) 500 mls @ 150 mls/hr IV ONETIME ONE Stop: 03/08/18 18:49 Last Admin: 03/08/18 15:51 Dose: 150 mls/hr Warfarin Sodium (Coumadin) 2 mg PO DAILY [facility] Last Admin: 03/09/18 08:55 Dose: Not Given - Exam Quality Assessment: Reports: Urine Catheter, Skin Breakdown Neck: Reports: Supple Lungs: Reports: Clear to Auscultation, Normal Respiratory Effort Cardiovascular: Reports: Regular Rate, Irregular Rhythm, Murmurs Extremities: Normal Range of Motion, Non-Tender, Normal Capillary Refill, Pedal Edema (2+ pitting to BLE) Skin: Reports: Warm, Dry, Ecchymosis, Other (ulcer to buttocks) Wound/Incisions: Reports: Dressing Dry and Intact Neurological: Reports: No New Focal Deficit Psy/Mental Status: Reports: Alert, Normal Affect, Normal Mood
--- NOTE | 2018-03-10 16:03 | PN ---
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 Arrangements were made at the assisted for hospice. We will start pulling her off from some of the medication. Goal strictly to comfort care. LLOYD/DORIE /[id number]
== END 2018-03-10 10:30 | disposition home or self-care (01) | DRG 291 ==
LOC: CC.MS 13:10 → UNDOADMIN 13:10 → CC.MS 14:05
PROVIDERS: ADMIT General Practice; ATTEND General Practice
DX: I13.0 Hypertensive heart and chronic kidney disease with heart failure and stage 1 through stage 4 chronic kidney disease, or unspecified chronic kidney disease (principal); I50.23 Acute on chronic systolic (congestive) heart failure; N18.9 Chronic kidney disease, unspecified; E11.22 Type 2 diabetes mellitus with diabetic chronic kidney disease; L89.152 Pressure ulcer of sacral region, stage 2; I48.2 Chronic atrial fibrillation; I50.84 End stage heart failure; D63.8 Anemia in other chronic diseases classified elsewhere; E78.00 Pure hypercholesterolemia, unspecified; R53.1 Weakness; R53.83 Other fatigue; H54.7 Unspecified visual loss; M19.90 Unspecified osteoarthritis, unspecified site; M81.0 Age-related osteoporosis without current pathological fracture; K59.00 Constipation, unspecified; M54.5 Low back pain; R26.2 Difficulty in walking, not elsewhere classified; N28.9 Disorder of kidney and ureter, unspecified; R11.0 Nausea; Z88.1 Allergy status to other antibiotic agents; Z88.2 Allergy status to sulfonamides; Z51.5 Encounter for palliative care; Z88.8 Allergy status to other drugs, medicaments and biological substances; Z95.0 Presence of cardiac pacemaker; Z79.01 Long term (current) use of anticoagulants; Z79.82 Long term (current) use of aspirin; Z95.2 Presence of prosthetic heart valve; Z79.4 Long term (current) use of insulin; Z79.891 Long term (current) use of opiate analgesic; Z79.899 Other long term (current) drug therapy
CPT/HCPCS: 36415; 80048; 80053; 81001; 82962; 83735; 83880; 85025; 85610; 86140; A9270-GY; J1815-GY; J1940; J2405; J7040